=== PATIENT | male | born 1930 | race Caucasian/White ===

== ENCOUNTER → 2017-11-15 | Outpatient (CLI) | payer MEDICARE, OTHER ==
--- NOTE | 2017-11-15 08:45 | RADIOLOGY REPORT (SQ) ---
EXAM DESCRIPTION: MRI LT UPPER JOINT WITHOUT COMPLETED DATE/TIME: 11/15/2017 7:51 am REASON FOR STUDY: PAIN IN LEFT SHOULDER (M25.512) M25.512 PAIN IN LEFT SHOULDER COMPARISON: None. TECHNIQUE: Left shoulder images acquired and stored on PACS. Multiplanar imaging to include fat sens itive sequences such as T1, water sensitive sequences such as FST2/STIR, cartilage sensitive sequence s such as FSPD/gradient-echo sequences. LIMITATIONS: None. FINDINGS: BONE MARROW AND CORTEX: No worrisome bone lesions or marrow replacement. No occult fractur es. JOINT OR BURSAL EFFUSION: Small amount of fluid in the subacromial/subdeltoid bursa GLENO-HUMERAL ARTICULATION: Normal articulation. No subluxation. No cystic change. No osteophytes. M ild age-appropriate chondromalacia ACROMION AND AC JOINT: Type 2 with bulky AC joint hypertrophy, bony spurring and synovial fluid/thic kening. There is narrowing of the subacromial space ROTATOR CUFF AND INTERVAL: Mild tendinopathy anterior attachment distal supraspinatus tendon. infras pinatus, subscapularis are intact. No rotator interval tear. No rotator interval thickening to suggest adhesive capsulitis. LABRUM AND BICEPS LABRAL COMPLEX: There is marked thickening and increased signal of the long head biceps tendon as it enters the joint space from the bicipital groove, best shown on sagittal images 5 -7. Intra-articular long head biceps tendon is high signal from tendinopathy. Diffuse degenerative superior labral tear without paralabral cyst. REMAINDER OF LABRUM AND IGHL : No gross tear or paralabral cyst formation. Labral evaluation is less than optimal without joint distention. No thickening of IGHL to suggest adhesive capsulitis. PERIARTICULAR AND ADJACENT SOFT TISSUES: No masses or abnormal nodes. OTHER: No other significant finding. IMPRESSION: Intra-articular long head biceps tendinopathy with superior labral tear, no paralabral c ysts. AC joint hypertrophy with narrowing of the subacromial space, and fluid in the subacromial/subdeltoid bursa Small partial thickness tear anterior edge distal supraspinatus attachment TECHNICAL DOCUMENTATION: JOB ID: [id number] [employer]- All Rights Reserved Reading location - IP/workstation name: [email or web address] [id number]
== END ==
LOC: RAD 06:41
PROVIDERS: ATTEND Orthopaedic Surgery Sports Medicine
DX: M25.512 Pain in left shoulder (principal); M75.112 Incomplete rotator cuff tear or rupture of left shoulder, not specified as traumatic

== ENCOUNTER → 2018-01-26 | Outpatient (CLI) | payer MEDICARE, OTHER ==
[2018-01-26 10:58] LABS: ABSOLUTE EOSINOPHILS # (AUTO) 0.1 10^3/uL (0.0-0.6); ABSOLUTE LYMPHOCYTES (AUTO) 1.5 10^3/uL (0.5-4.7); ABSOLUTE MONOCYTES (AUTO) 0.6 10^3/uL (0.1-1.4); ABSOLUTE NEUT (AUTO) 6.5 10^3/uL (1.7-8.2); BASOPHILS % (AUTO) 0.5 % (0-2); EOSINOPHILS % (AUTO) 1.1 % (0-6); HEMATOCRIT 33.3 % (37.9-51.0); HEMOGLOBIN 11.8 g/dL (13.5-17.0); LYMPHOCYTES % (AUTO) 16.8 % (13-45); MEAN CORPUSCULAR HEMOGLOBIN 33.1 pg (27.0-33.4); MEAN CORPUSCULAR HGB CONC 35.3 g/dL (32.0-36.0); MEAN CORPUSCULAR VOLUME 94 fl (80-97); PLATELET COUNT 228 10^3/uL (150-450); RED BLOOD COUNT 3.55 10^6/uL (4.35-5.55); RED CELL DISTRIBUTION WIDTH 13.3 % (11.5-14.0); SEGMENTED NEUTROPHILS % (AUTO) 74.6 % (42-78); TOTAL CELLS COUNTED % (AUTO) 100 %; WHITE BLOOD COUNT 8.8 10^3/uL (4.0-10.5)
[2018-01-26 11:27] LABS: ALANINE AMINOTRANSFERASE 16 U/L (21-72); ALBUMIN 4.5 g/dL (3.5-5.0); ALKALINE PHOSPHATASE 55 U/L (38-126); ANION GAP 11 (5-19); ASPARTATE AMINO TRANSFERASE 22 U/L (17-59); BILIRUBIN,DIRECT 0.3 mg/dL (0.0-0.4); BILIRUBIN,TOTAL 0.4 mg/dL (0.2-1.3); BLOOD UREA NITROGEN 34 mg/dL (7-20); CALCIUM 10.4 mg/dL (8.4-10.2); CARBON DIOXIDE 27 mmol/L (22-30); CHLORIDE 107 mmol/L (98-107); GLUCOSE 106 mg/dL (75-110); POTASSIUM 5.3 mmol/L (3.6-5.0); SODIUM 144.8 mmol/L (137-145); TOTAL PROTEIN 7.2 g/dL (6.3-8.2)
== END ==
LOC: OD 10:19
PROVIDERS: ATTEND Orthopaedic Surgery Sports Medicine
DX: Z11.2 Encounter for screening for other bacterial diseases (principal); I10 Essential (primary) hypertension
CPT/HCPCS: 36415; 80053; 85025; 87070

== ENCOUNTER → 2018-03-05 | Outpatient (CLI) | payer MEDICARE, OTHER ==
[2018-03-05 19:08] LABS: HEMATOCRIT 35.6 % (37.9-51.0); HEMOGLOBIN 12.5 g/dL (13.5-17.0); MEAN CORPUSCULAR VOLUME 92 fl (80-97); PLATELET COUNT 243 10^3/uL (150-450); RED BLOOD COUNT 3.89 10^6/uL (4.35-5.55); RED CELL DISTRIBUTION WIDTH 13.1 % (11.5-14.0); WHITE BLOOD COUNT 7.9 10^3/uL (4.0-10.5)
[2018-03-05 19:14] LABS: INTERNATIONAL RATION (INR) 1.14; PROTHROMBIN TIME 15.2 SEC (11.4-15.4)
[2018-03-05 19:15] LABS: PARTIAL THROMBOPLASTIN TIME 40.5 SEC (23.5-35.8)
[2018-03-05 19:26] LABS: ANION GAP 10 (5-19); BLOOD UREA NITROGEN 28 mg/dL (7-20); CARBON DIOXIDE 26 mmol/L (22-30); CHLORIDE 105 mmol/L (98-107); GLUCOSE 116 mg/dL (75-110); POTASSIUM 4.4 mmol/L (3.6-5.0)
== END ==
LOC: LAB 18:44
PROVIDERS: ATTEND Internal Medicine Cardiovascular Disease
DX: Z01.810 Encounter for preprocedural cardiovascular examination (principal); R07.9 Chest pain, unspecified; R07.89 Other chest pain; Z79.01 Long term (current) use of anticoagulants
CPT/HCPCS: 36415; 80048; 85027; 85610; 85730

== ENCOUNTER 2018-07-03 16:39 | Emergency (ER) | payer MEDICARE, OTHER ==
[2018-07-03] MEDS ORDERED: DILTIAZEM HCL/D5W 125 MG/125 ML RTUINJ IV PRN (16:47)
[2018-07-03] MEDS ORDERED: ASPIRIN 81 MG TABLET, CHEWABLE PO ONE (16:47)
--- NOTE | 2018-07-03 17:10 | ER Document Report ---
ED General - General Stated Complaint: CHEST PAIN Time Seen by Provider: 07/03/18 16:47 Primary Care Provider: RAMONE PRUETT MD [Primary Care Provider] - Follow up as needed TRAVEL OUTSIDE OF THE U[place]S. IN LAST 30 DAYS: No - HPI Notes: Patient is a 87-year-old male that presents to the emergency department for chief complaint of rapid heart rate. Patient has history of paroxysmal atrial fibrillation. He is managed by Dr. Pruett. Patient saw Dr. Pruett 2 weeks ago and was in A. fib with rapid rate. He had been given Lopressor 50 mg to take as needed for his tachycardia as well as Cardizem 120 mg daily. He had a follow-up appointment with Dr. Pruett today and had a heart rate of 202 in the office. Patient reports being asymptomatic from his tachycardia. He denies any palpitations, shortness of breath, l ightheadedness and chest pain. Patient denies recent illness. He does have a history of rotator cuff surgery at [place] [facility] in March. Patient had a heart catheterization prior to his surgery which showed mild to moderate CAD but his 2 coronary stents were patent. He is currently taking Eliquis 2.5 mg daily. Past Medical History: Atrial fibrillation, hypertension Past Surgical History: Left rotator cuff surgery, coronary stenting x2 Social History: Denies drugs alcohol and tobacco Family History: Reviewed and noncontributory for presenting illness Allergies: Reviewed, see documented allergy list. REVIEW OF SYSTEMS: CONSTITUTIONAL : No fever No chills No diaphoresis No recent illness EENT: No vision changes No congestion No sore throat CARDIOVASCULAR: No chest pain No palpitations RESPIRATORY: No shortness of breath No cough No difficulty breathing GASTROINTESTINAL: No abdominal pain No nausea No vomiting No diarrhea GENITOURINARY: No dysuria No hematuria No difficulty urinating MUSCULOSKELETAL: No back pain No leg pain No arm pain SKIN: No rashes No lesions LYMPHATIC: No swollen, enlarged glands. NEUROLOGICAL: No lightheadedness No headache No weakness No paresthesias PSYCHIATRIC: No anxiety No depression PHYSICAL EXAMINATION: Vital signs reviewed, nursing noted reviewed. GENERAL: Well-appearing, well-nourished and in no acute distress. HEAD: Atraumatic, normocephalic. EYES: Eyes appear normal, extraocular movements intact, sclera anicteric, conjunctiva are normal. ENT: nares patent, oropharynx clear without exudates. Moist mucous membranes. NECK: Normal range of motion, supple without lymphadenopathy LUNGS: Breath sounds clear to auscultation bilaterally and equal. No wheezes rales or rhonchi. HEART: Irregularly irregular rhythm, tachycardic, without murmurs ABDOMEN: Soft, nontender, normoactive bowel sounds. No rebound, guarding, or rigidity. No masses appreciated. EXTREMITIES: Nontender, good range of motion, no pitting or edema. NEUROLOGICAL: No focal neurological deficits. Moves all extremities spontaneously Motor and sensory grossly intact on exam. PSYCH: Normal mood, normal affect. SKIN: Warm, Dry, normal turgor, no rashes or lesions noted on exposed skin - Related Data Allergies/Adverse Reactions: zolpidem [From Ambien] Allergy (Verified 07/03/18 18:30) Past Medical History - Social History Smoking Status: Never Smoker Family History: Reviewed & Not Pertinent Physical Exam - Vital signs Vitals: Resp Pulse Ox 18 94 07/03/18 16:48 07/03/18 16:48 Course - Re-evaluation Re-evalutation: 07/03/18 17:07 Vitals reviewed. Nursing notes reviewed. Patient received a bolus of Cardizem by EMS prior to arrival which improved his heart rate from 200 to 169. Patient will be started on Cardizem infusion. 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 Sebastian regarding his past cardiac history. Patient has had issues taking medications because of hypotension and noncompliance. Dr. Pruett feels that he is requiring ablation and believes that there is an atrial flutter component to his tachycardia. Dr. Pruett does request that patient be transferred to a facility with EP who can perform an ablation. Patient is currently resting comfortably with no complaints or symptoms. He is on the monitor. Current heart rate is between 130 and 170. 07/03/18 18:57 Patient's lab work shows slight increase in creatinine compared to baseline. The remainder of his blood work is unremarkable. He has a negative troponin. Patient's Cardizem drip has been increased and he has had some improvement of his heart rate. He is bouncing between the 120s and 160s at this point. Patient has remained asymptomatic. I did discuss his care with [facility] where his cardiac catheterization was just performed and was told that they do not do inpatient EP evaluations. I then rediscussed his care with Dr. Pruett who still feels he needs inpatient EP evaluation. Currently I am awaiting a callback from cardiology at [facility] to discuss transferring patient there for further cardiac evaluation. Laboratory 07/03/18 07/03/18 07/03/18 16:54 16:54 16:54 WBC 6.7 RBC 3.59 L Hgb 11.2 L Hct 33.2 L MCV 93 MCH 31.2 MCHC 33.7 RDW 14.0 Plt Count 247 Seg Neutrophils % 70.4 Lymphocytes % 19.9 Monocytes % 8.4 Eosinophils % 0.5 Basophils % 0.8 Absolute Neutrophils 4.7 Absolute Lymphocytes 1.3 Absolute Monocytes 0.6 Absolute Eosinophils 0.0 Absolute Basophils 0.1 Sodium 141.0 Potassium 4.5 Chloride 108 H Carbon Dioxide 22 Anion Gap 11 BUN 24 H Creatinine 1.47 H Est GFR ( Amer) 55 L Est GFR (Non-Af Amer) 45 L Glucose 118 H Calcium 9.8 Total Bilirubin 0.4 Direct Bilirubin 0.3 Neonat Total Bilirubin Not Reportable Neonat Direct Bilirubin Not Reportable Neonat Indirect Bili Not Reportable AST 24 ALT 35 Alkaline Phosphatase 69 Troponin I < 0.012 Total Protein 7.0 Albumin 4.0 Chest X-Ray 07/03/18 16:47 IMPRESSION: Increased interstitial markings bilaterally, basilar predominance. Small right pleural effusion.No dense consolidation. 07/03/18 19:52 Patient's care was discussed with Dr. Roland, cardiology at [facility], who has accepted patient for transfer and admission. - Vital Signs Vital signs: Temp Pulse Resp BP Pulse Ox 27 H 116/72 95 07/03/18 17:46 07/03/18 17:46 07/03/18 17:46 - Laboratory Result Diagrams: 07/03/18 16:54 07/03/18 16:54 Laboratory results interpreted by me: 07/03/18 07/03/18 16:54 16:54 RBC 3.59 L Hgb 11.2 L Hct 33.2 L Chloride 108 H BUN 24 H Creatinine 1.47 H Est GFR ( Amer) 55 L Est GFR (Non-Af Amer) 45 L Glucose 118 H - EKG Interpretation by Me Additional EKG results interpreted by me: 07/03/18 17:10 Interpreted by myself 1645: Atrial fibrillation with RVR, rate 169, normal axis, no STEMI Critical Care Note - Critical Care Note Total time excluding time spent on procedures (mins): 45 Comments: Critical care time 45 exclusive from separate billable procedures for a patient requiring complex medical decision making, and high potential for clinical deterioration. Time spent obtaining history from patient or surrogate, discussions with consultants, development of treatment plan with patient or surrogate, evaluation of patient's response to treatment, examination of patient, ordering and performing treatments and interventions, ordering and review of laboratory studies, re-evaluation of patient's condition, ordering and review of radiographic studies and review of old charts. Laboratory 07/03/18 07/03/18 07/03/18 16:54 16:54 16:54 WBC 6.7 RBC 3.59 L Hgb 11.2 L Hct 33.2 L MCV 93 MCH 31.2 MCHC 33.7 RDW 14.0 Plt Count 247 Seg Neutrophils % 70.4 Lymphocytes % 19.9 Monocytes % 8.4 Eosinophils % 0.5 Basophils % 0.8 Absolute Neutrophils 4.7 Absolute Lymphocytes 1.3 Absolute Monocytes 0.6 Absolute Eosinophils 0.0 Absolute Basophils 0.1 Sodium 141.0 Potassium 4.5 Chloride 108 H Carbon Dioxide 22 Anion Gap 11 BUN 24 H Creatinine 1.47 H Est GFR ( Amer) 55 L Est GFR (Non-Af Amer) 45 L Glucose 118 H Calcium 9.8 Total Bilirubin 0.4 Direct Bilirubin 0.3 Neonat Total Bilirubin Not Reportable Neonat Direct Bilirubin Not Reportable Neonat Indirect Bili Not Reportable AST 24 ALT 35 Alkaline Phosphatase 69 Troponin I < 0.012 Total Protein 7.0 Albumin 4.0 Chest X-Ray 07/03/18 16:47 IMPRESSION: Increased interstitial markings bilaterally, basilar predominance. Small right pleural effusion.No dense consolidation. Discharge - Discharge Clinical Impression: Atrial fibrillation with RVR Condition: Stable Disposition: [facility] Referrals: RAMONE PRUETT MD [Primary Care Provider] - Follow up as needed
[2018-07-03 17:22] LABS: ABSOLUTE BASOPHILS # (AUTO) 0.1 10^3/uL (0.0-0.2); ABSOLUTE LYMPHOCYTES (AUTO) 1.3 10^3/uL (0.5-4.7); ABSOLUTE MONOCYTES (AUTO) 0.6 10^3/uL (0.1-1.4); ABSOLUTE NEUT (AUTO) 4.7 10^3/uL (1.7-8.2); BASOPHILS % (AUTO) 0.8 % (0-2); EOSINOPHILS % (AUTO) 0.5 % (0-6); HEMATOCRIT 33.2 % (37.9-51.0); HEMOGLOBIN 11.2 g/dL (13.5-17.0); LYMPHOCYTES % (AUTO) 19.9 % (13-45); MEAN CORPUSCULAR HEMOGLOBIN 31.2 pg (27.0-33.4); MEAN CORPUSCULAR HGB CONC 33.7 g/dL (32.0-36.0); MEAN CORPUSCULAR VOLUME 93 fl (80-97); MONOCYTES % (AUTO) 8.4 % (3-13); PLATELET COUNT 247 10^3/uL (150-450); RED BLOOD COUNT 3.59 10^6/uL (4.35-5.55); SEGMENTED NEUTROPHILS % (AUTO) 70.4 % (42-78); TOTAL CELLS COUNTED % (AUTO) 100 %; WHITE BLOOD COUNT 6.7 10^3/uL (4.0-10.5)
--- NOTE | 2018-07-03 17:31 | RADIOLOGY REPORT (SQ) ---
EXAM DESCRIPTION: CHEST SINGLE VIEW COMPLETED DATE/TIME: 07/03/2018 5:11 pm REASON FOR STUDY: chest pain COMPARISON: None. EXAM PARAMETERS: NUMBER OF VIEWS: One view. TECHNIQUE: Single frontal radiographic view of the chest acquired. RADIATION DOSE: NA LIMITATIONS: None. FINDINGS: LUNGS AND PLEURA: Increased interstitial markings bilaterally, basilar predominance. Smal l right pleural effusion.No dense consolidation, masses or pneumothorax. MEDIASTINUM AND HILAR STRUC TURES: Age-appropriate contour. HEART AND VASCULAR STRUCTURES: Heart normal in size. BONES: No acute findings. HARDWARE: None in the chest. OTHER: No other significant finding. IMPRESSION: Increased interstitial markings bilaterally, basilar predominance. Small right pleural effusion.No dense consolidation. TECHNICAL DOCUMENTATION: JOB ID: [id number] [employer]- All Rights Reserved Reading location - IP/workstation name: [email or web address]
[2018-07-03 17:40] LABS: ALANINE AMINOTRANSFERASE 35 U/L (21-72); ALKALINE PHOSPHATASE 69 U/L (38-126); ANION GAP 11 (5-19); ASPARTATE AMINO TRANSFERASE 24 U/L (17-59); BILIRUBIN,DIRECT 0.3 mg/dL (0.0-0.4); BILIRUBIN,TOTAL 0.4 mg/dL (0.2-1.3); BLOOD UREA NITROGEN 24 mg/dL (7-20); CALCIUM 9.8 mg/dL (8.4-10.2); CARBON DIOXIDE 22 mmol/L (22-30); CHLORIDE 108 mmol/L (98-107); GLUCOSE 118 mg/dL (75-110); POTASSIUM 4.5 mmol/L (3.6-5.0)
[2018-07-03] MEDS ORDERED: FUROSEMIDE INJ/PF 40 MG/4 ML SDV IV ONE (18:48)
[2018-07-03] MEDS ORDERED: DEXTROSE 5%-WATER 500 ML with AMIODARONE HCL 900 MG IV PRN ×2 (22:10)
[2018-07-03] MEDS ORDERED: AMIODARONE HCL 150 MG in DEXTROSE 5%-WATER 100 ML IV ONE (22:10)
[2018-07-03] MEDS ORDERED: AMIODARONE HCL INJ 150 MG/3 ML VIAL IV ONE (22:23)
[2018-07-04 01:00] VITALS: BP 143/93
--- NOTE | 2018-07-04 10:36 | EKG REPORT ---
SEVERITY:- ABNORMAL ECG - ATRIAL FIBRILLATION WITH RAPID V-RATE CONSIDER ANTEROSEPTAL INFARCT REPOLARIZATION ABNORMALITY, PROB RATE RELATED : Confirmed by: Jen Del Toro 04-Jul-2018 10:36:02
== END 2018-07-04 00:55 | disposition short-term general hospital (02) ==
LOC: ER 16:39
DX: I48.2 Chronic atrial fibrillation (principal)
CPT/HCPCS: 93005; 99291; 96375; 96365; 96366; 96367; 36415; 85025; 80053; 84484; 71045; 93010; A9270; J1940; J7060 ×2; J0282; J3490

== ENCOUNTER → 2018-10-09 | Outpatient (CLI) | payer MEDICARE, OTHER ==
--- NOTE | 2018-10-09 16:43 | RADIOLOGY REPORT (SQ) ---
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 TECHNIQUE: Grayscale ultrasound, Doppler velocity and spectra, and color Doppler images acquired of the extra-cranial carotid and vertebral arteries. Images stored on PACS. LIMITATIONS: None. FINDINGS: RIGHT CAROTID CCA Velocities: Within normal limits. ICA Velocities Peak systolic 131 cm/s. End diastolic 22 cm/s. Proximal ICA/CCA peak systolic ratio 1.6 june. There is considerable shadowing plaque in the carotid bulb and proximal ICA. There is tortuosity of the ICA. LEFT CAROTID CCA Velocities: Within normal limits. ICA Velocities Peak systolic 106 cm/s. End diastolic 19 cm/s. Proximal ICA/CCA peak systolic ratio 0.97. There is plaque in the proximal ICA. VERTEBRAL ARTERIES: Antegrade flow. Normal waveforms. SUBCLAVIAN ARTERIES: No finding. OTHER: No other significant finding. IMPRESSION: There are atherosclerotic changes with no hemodynamically significant lesion. COMMENT: Quality ID #[id number]: Velocity criteria are extrapolated from the diameter data as defined by t he Society of Radiologists in Ultrasound Consensus Conference. Radiology 2003: 229; 340-346. TECHNICAL DOCUMENTATION: JOB ID: [id number] [employer]- All Rights Reserved Reading location - IP/workstation name: [email or web address]
== END ==
LOC: SP 10:41
PROVIDERS: ATTEND Ophthalmology
DX: H47.011 Ischemic optic neuropathy, right eye (principal)
CPT/HCPCS: 93880

== ENCOUNTER → 2018-10-29 | Outpatient (CLI) | payer MEDICARE, OTHER ==
--- NOTE | 2018-10-29 13:32 | RADIOLOGY REPORT (SQ) ---
EXAM DESCRIPTION: CHEST 2 VIEWS COMPLETED DATE/TIME: 10/29/2018 1:04 pm REASON FOR STUDY: I48.0 PAROXYSMAL ATRIAL FIBRILLATION COMPARISON: 07/03/2018 EXAM PARAMETERS: NUMBER OF VIEWS: two views TECHNIQUE: Digital Frontal and Lateral radiographic views of the chest acquired. RADIATION DOSE: NA LIMITATIONS: none FINDINGS: LUNGS AND PLEURA: Chronic interstitial changes in the right base. No acute infiltrate, ef fusion, or mass. MEDIASTINUM AND HILAR STRUCTURES: No masses or contour abnormalities. HEART AND VASCULAR STRUCTURES: Heart normal size. No evidence for failure. BONES: No acute findings. HARDWARE: None in the chest. OTHER: No other significant finding. IMPRESSION: Chronic lung changes with no acute cardiopulmonary findings. TECHNICAL DOCUMENTATION: JOB ID: [id number] [employer]- All Rights Reserved Reading location - IP/workstation name: [email or web address]
--- NOTE | 2018-10-30 10:28 | Pulmonary Function Test ---
Pulmonary Function Test Date of Procedure:: 10/30/18 INDICATION:: Amiodarone Referring Provider: Type Soldering Machine Tender: Hafsa Hudson THERAPIST PHYS - Report Spirometry: Spirometry: pre-FVC: 4.01 L 107% pre-FEV:1 2.58 L 90% pre-FEV1/FVC %: 75 predicted: 64 [id number]%: 1.19 L 44% Diffusion Capactity: DLCO: 13.9 90% DLCO/VA: 2.36 74% Impression: Obstructive defect is inferred by the decrease flow at FEF 25-75%. Normal diffusion capacity.
== END ==
LOC: RT 11:58
PROVIDERS: ATTEND Internal Medicine Cardiovascular Disease
DX: I48.0 Paroxysmal atrial fibrillation (principal); Z79.899 Other long term (current) drug therapy
CPT/HCPCS: 71046; 94010; 94729

== ENCOUNTER 2018-12-27 17:53 | Emergency (ER) | payer MEDICARE, OTHER ==
[2018-12-27] MEDS ORDERED: METHYLPREDNISOLONE INJ 125 MG/2 ML SDV IV ONE (19:19)
[2018-12-27] MEDS ORDERED: FAMOTIDINE INJ/PF 20 MG/2 ML SDV IV ONE (19:20)
[2018-12-27] MEDS ORDERED: DIPHENHYDRAMINE HCL 50 MG/ML VIAL IV ONE (19:20)
--- NOTE | 2018-12-27 19:22 | ER Document Report ---
ED General - General Chief Complaint: Allergic Reaction Stated Complaint: POSSIBLE ALLERGIC REACTION Time Seen by Provider: 12/27/18 19:14 Primary Care Provider: BEATRIZ ALEXANDER MD [Primary Care Provider] - Follow up as needed TRAVEL OUTSIDE OF THE [place] IN LAST 30 DAYS: No - HPI Notes: Patient is an 88-year-old male with history of atrial fibrillation who presents from MRI as an outpatient for possible allergic reaction to the dye. Patient states that when he started getting the contrast he started noticing some itching. By the time the MRI was completed he had some welts on his chest and on his had that were pruritic. Patient was brought here for evaluation. He has not noticed any swelling of his tongue/lip/throat. He is able to swallow without difficulty. Patient states he is feeling good overall and has not noticed any worsening symptoms. Patient states that overall the hives have somewhat decreased. No other new foods, detergents, soaps, chemicals, clothing, travel. Denies any history of diabetes. Denies any headache, fever, neck pain, changes in speech/mentation/hearing, URI, sore throat, chest pain, palpitations, syncope, cough, shortness of breath, wheeze, dyspnea, abdominal pain, nausea/vomiting/diarrhea, urinary retention, dysuria, hematuria, new joint pains. - Related Data Allergies/Adverse Reactions: zolpidem [From Ambien] Allergy (Verified 07/03/18 18:30) Past Medical History - Social History Smoking Status: Never Smoker Family History: Reviewed & Not Pertinent Patient has suicidal ideation: No Patient has homicidal ideation: No Renal/ Medical History: Denies: Hx Peritoneal Dialysis Review of Systems - Review of Systems -: Yes All other systems reviewed and negative Physical Exam - Vital signs Vitals: Temp Pulse Resp BP Pulse Ox 97.6 F 73 18 204/72 H 98 12/27/18 18:00 12/27/18 18:00 12/27/18 18:00 12/27/18 18:00 12/27/18 18:00 - Notes Notes: PHYSICAL EXAMINATION: GENERAL: Well-appearing, well-nourished and in no acute distress. A&Ox4. Answers questions appropriately. Moves comfortably w/o notable distress HEAD: Atraumatic, normocephalic. EYES: Pupils equal round and reactive to light, extraocular movements intact, sclera anicteric, conjunctiva are normal. ENT: Nares patent and with clear discharge. oropharynx no erythema without exudates. No tonsilar hypertrophy without erythema no exudate. No palatine shift. Uvula midline. No tongue protrusion. No drooling, hoarseness, or airway compromise. Moist mucous membranes. No sinus tenderness. There is no evidence of angioedema. No swelling of the lip/tongue/throat. Patient able to swallow without any difficulties. NECK: Normal range of motion, supple without lymphadenopathy. No rigidity/meningismus. LUNGS: Breath sounds clear to auscultation bilaterally and equal. No wheezes rales or rhonchi. No retractions HEART: Regular rate and rhythm without murmurs, rubs, gallops. ABDOMEN: Soft, nontender, nondistended abdomen. No guarding, no rebound. Normal bowel sounds present. No CVA tenderness bilaterally. NEUROLOGICAL: Normal speech, normal gait. Cranial nerves grossly intact. PSYCH: Normal mood, normal affect. SKIN: Warm, Dry, normal turgor, no rashes or lesions noted. Course - Re-evaluation Re-evalutation: 12/27/18 20:48 Patient is an afebrile, well-hydrated, 88-year-old male who presents for a mild allergic reaction most likely to the contrast dye that was utilized during the MRI. Vitals are acceptable without significant tachycardia, tachypnea, hypoxia, hypotension. PE is otherwise unremarkable. Patient is nontoxic-appearing and is tolerating p.o. without difficulty. Patient has been monitored without any worsening symptoms. He did receive Solu-Medrol, Benadryl, and Pepcid and has had significant improvement. Patient states that he is feeling much better and would like to go home. No further work-up warranted. Low suspicion for any meningitis, sepsis, peritonsillar/pharyngeal abscess, respiratory compromise, Marco Antonio's, angioedema, shock, or other emergent systemic condition at this time. Patient is aware this condition can change from initial presentation and he needs to monitor symptoms closely. Conservative measures otherwise for symptoms. Recheck with your PCM in 2-3 days. Return to the ED with any worsening/concerning symptoms otherwise as reviewed in discharge. Patient is in agreement. - Vital Signs Vital signs: Temp Pulse Resp BP Pulse Ox 97.6 F 73 18 162/65 H 94 12/27/18 18:00 12/27/18 18:00 12/27/18 18:00 12/27/18 20:01 12/27/18 20:01 Discharge - Discharge Clinical Impression: Allergic reaction Qualifiers: Encounter type: initial encounter Qualified Code(s): T78.40XA - Allergy, unspecified, initial encounter Condition: Stable Disposition: HOME, SELF-CARE Additional Instructions: Keep the skin clean Wash with soap and water Benadryl/pepcid as reviewed Monitor for any worsening symptoms Recheck with your PCM in 2-3 days Return to the ED with any worsening symptoms and/or development of fever, swelling of lips/tongue/throat, drooling, hoarseness, headache, chest pain, palpitations, syncope, shortness of breath, trouble breathing, abdominal pain, n/v/d, abscess, purulent discharge, red streaks, worsening swelling, or other worsening symptoms that are concerning to you. Prescriptions: Prednisone [Deltasone 20 mg Tablet] 3 tab PO DAILY 3 Days tablet Epinephrine [Epipen Jr 0.15 mg/0.3 mL AutoInject] 1 ea IM ASDIR PRN #1 autoinjector PRN Reason: Forms: Elevated Blood Pressure Referrals: BEATRIZ ALEXANDER MD [Primary Care Provider] - Follow up as needed
[2018-12-27 22:24] VITALS: BP 161/69
== END 2018-12-27 22:24 | disposition home or self-care (01) ==
LOC: ER 17:53
DX: T78.40XA Allergy, unspecified, initial encounter (principal); X58.XXXA Exposure to other specified factors, initial encounter; I48.91 Unspecified atrial fibrillation
CPT/HCPCS: J1200; J2930; S0028

== ENCOUNTER → 2018-12-27 | Outpatient (CLI) | payer MEDICARE, OTHER ==
--- NOTE | 2018-12-28 13:09 | RADIOLOGY REPORT (SQ) ---
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 TECHNIQUE: Multiplanar imaging includes noncontrasted T1, T2, FLAIR, diffusion with ADC map and post gadolinium contrast T1 sequences. Thin section imaging through the orbits including pre and postcontrast T1 axial and coronal images, a xial and coronal fat-sat T2 weighted images were obtained. Images stored on PACS. CONTRAST TYPE AND DOSE: 7.5 mL Dotarem. RENAL FUNCTION: Not indicated. ACR Type II contrast agent associated with few, if any, unconfounded cases of NSF LIMITATIONS: None. FINDINGS: ANATOMY: No developmental anomalies. Normal vascular flow voids. Pituitary fossa normal. CSF SPACES: Normal in size and contour. No hemorrhage. CEREBRUM: Sulci and gyri normal in size and contour. Age-appropriate mild increased bifrontal and bi parietal white matter signal on FLAIR imaging from chronic small vessel ischemic change. No evidence of hemorrhage, mass, or extraaxial fluid collection. No abnormal enhancement post contrast. POSTERIOR FOSSA: No signal alteration. No hemorrhage. No edema, masses, or mass effect. Internal breana tory canals, cerebellopontine angles, mastoids normal. No enhancing lesions. No abnormal enhancement post contrast. DIFFUSION IMAGING: Negative for acute or subacute infarction. ORBITS: Post cataract surgery bilaterally. Globes are otherwise unremarkable. Normal optic nerves. No masses or inflammation along the intraconal or extraconal orbital soft tissues. Extraocular musc les, lacrimal apparatus intact. PARANASAL SINUSES: No fluid levels. Mucosa normal. OTHER: No other significant finding. IMPRESSION: ESSENTIALLY NORMAL FOR AGE, MRI OF THE BRAIN WITHOUT AND WITH INTRAVENOUS GADOLINIUM CON TRAST. EVIDENCE OF ACUTE STROKE: NO. TECHNICAL DOCUMENTATION: JOB ID: [id number] [email or web address] All Rights Reserved Reading location - IP/workstation name: [email or web address]
== END ==
LOC: RAD 14:22
PROVIDERS: ATTEND Ophthalmology
DX: H47.011 Ischemic optic neuropathy, right eye (principal); H47.10 Unspecified papilledema
CPT/HCPCS: 82565; 70553; A9576

== ENCOUNTER 2019-03-11 09:17 | Inpatient (IN) | payer MEDICARE, OTHER ==
--- NOTE | 2019-03-11 09:59 | ER Document Report ---
ED General - General Chief Complaint: Breathing Difficulty Stated Complaint: DIFFICULTY BREATHING Primary Care Provider: RAMONE PRUETT MD [Primary Care Provider] - Follow up as needed Notes: 88-year-old male with history of intermittent A. fib presenting with increased shortness of breath this morning with chest pain. Not able to describe it well but for the past week has been having intermittent positional dizziness and near syncope this morning had acute shortness of breath and chest pain. Found to be in SVT apparently per EMS which they captured on a strip. He takes Eliquis, he was on amiodarone, but has been off of that because of complications. E TRAVEL OUTSIDE OF THE [place] IN LAST 30 DAYS: No - Related Data Allergies/Adverse Reactions: Gadolinium-Containing Contrast Medi Allergy (Intermediate, Verified 12/31/18 08:07) Hives zolpidem [From Ambien] Allergy (Verified 07/03/18 18:30) Past Medical History - Social History Smoking Status: Former Smoker Family History: Reviewed & Not Pertinent Renal/ Medical History: Denies: Hx Peritoneal Dialysis Review of Systems - Review of Systems Notes: REVIEW OF SYSTEMS GEN: Denies fever, chills, weight loss ENT: Denies sore throat, nasal discharge, ear pain EYES: Denies blurry vision, eye pain, discharge CV: Chest pain RESP: As of breath GI: Denies abdominal pain, nausea, vomiting, diarrhea MSK: Denies joint pain/swelling, edema, SKIN: Denies rash, skin lesions LYMPH: Denies swollen glands/lymph nodes NEURO: Dizziness denies headache, focal weakness or numbness, dizziness PSYCH: Denies depression, suicidal or homicidal ideation PHYSICAL EXAMINATION General: No acute distress, well-nourished Head: Atraumatic, normocephalic ENT: Mouth normal, oropharynx moist, no exudates or tonsillar enlargement Eyes: Conjunctiva normal, pupils equal, lids normal Neck: No JVD, supple, no guarding CVS: Normal rate, regular rhythm, no murmurs Resp: No resp distress, equal and normal breath sounds bilaterally GI: Nondistended, soft, no tenderness to palpation, no rebound or guarding Ext: No deformities, no edema, normal range of motion in upper and lower ext Back: No CVA or midline TTP Skin: No rash, warm Lymphatic: No lymphadeopathy noted Neuro: Awake, alert. Face symmetric. GCS 15. Course - Re-evaluation Re-evalutation: 03/11/19 11:13 Patient presents with intermittent orthostasis chest pain and palpitations In the ED he sinus rhythm but has been in SVT for the EMS.. Labs were done EKG does not show ischemia Patient had 2 different episodes where he accelerated into a rapid narrow complex tachycardia, hemodynamically stable, in the ED. We will proceed with Cardizem bolus and drip for SVT versus flutter We will withhold anticoagulation. Troponin is elevated at nearly 2, could be an STEMI or demand. Given aspirin. Already anticoagulated, does not miss doses so will not give Lovenox. Discussed with Dr. pal for admission Dr. Payne - Laboratory Result Diagrams: 03/11/19 09:00 03/11/19 09:00 Laboratory results interpreted by me: 03/11/19 03/11/19 03/11/19 09:00 09:00 09:00 WBC 11.1 H RBC 3.80 L Hgb 12.5 L Hct 36.2 L RDW 14.3 H Seg Neuts % (Manual) 83 H Lymphocytes % (Manual) 9 L Abs Neuts (Manual) 9.2 H Sodium 136.4 L Potassium 5.1 H BUN 35 H Creatinine 1.92 H Est GFR ( Amer) 40 L Est GFR (MDRD) Non-Af 33 L Glucose 141 H NT-Pro-B Natriuret Pep 7170 H - Diagnostic Test Radiology reviewed: Image reviewed, Reports reviewed - EKG Interpretation by Me EKG shows normal: Sinus rhythm Rate: Normal Rhythm: NSR - EKG number 2.: SVT 150, no significant ST or T wave changes, intervals otherwise normal Critical Care Note - Critical Care Note Total time excluding time spent on procedures (mins): 35 Comments: The above patient is critically ill. Not including procedures, but including direct re-evaluations, speaking with patient and/or consultants, interpreting results, and documenting, I spent the total amount of minute listed listed above on critical care time Discharge - Discharge Clinical Impression: Rapid atrial fibrillation, NSTEMI (non-ST elevated myocardial infarction) Condition: Good Disposition: ADMITTED INPATIENT Admitting Provider: Kerry (Hospitalist) Unit Admitted: Telemetry Referrals: RAMONE PRUETT MD [Primary Care Provider] - Follow up as needed
[2019-03-11 10:08] LABS: HEMATOCRIT 36.2 % (37.9-51.0); HEMOGLOBIN 12.5 g/dL (13.5-17.0); MEAN CORPUSCULAR HEMOGLOBIN 32.9 pg (27.0-33.4); MEAN CORPUSCULAR HGB CONC 34.5 g/dL (32.0-36.0); MEAN CORPUSCULAR VOLUME 95 fl (80-97); PLATELET COUNT 349 10^3/uL (150-450); RED CELL DISTRIBUTION WIDTH 14.3 % (11.5-14.0); WHITE BLOOD COUNT 11.1 10^3/uL (4.0-10.5)
[2019-03-11] MEDS ORDERED: DILTIAZEM HCL/D5W 125 MG/125 ML RTUINJ IV PRN (10:21)
[2019-03-11] MEDS ORDERED: DILTIAZEM HCL INJ 25 MG/5 ML VIAL IV ONE (10:21)
[2019-03-11 10:32] LABS: ANION GAP 12 (5-19); BLOOD UREA NITROGEN 35 mg/dL (7-20); CALCIUM 9.8 mg/dL (8.4-10.2); CARBON DIOXIDE 22 mmol/L (22-30); CHLORIDE 102 mmol/L (98-107); GLUCOSE 141 mg/dL (75-110); POTASSIUM 5.1 mmol/L (3.6-5.0)
[2019-03-11 10:45] LABS: TROPONIN I 1.95 ng/mL
[2019-03-11 10:49] LABS: ABSOLUTE LYMPHOCYTES# (MANUAL) 1.1 10^3/uL (0.5-4.7); ABSOLUTE MONOCYTES # (MANUAL) 0.8 10^3/uL (0.1-1.4); BASOPHILS % (MANUAL) 0 % (0-2); EOSINOPHILS % (MANUAL) 0 % (0-6); LYMPHOCYTES % (MANUAL) 9 % (13-45); MONOCYTES % (MANUAL) 7 % (3-13); SEGMENTED NEUTROPHILS % (MAN) 83 % (42-78); TOTAL CELLS COUNTED 100
[2019-03-11 10:59] LABS: ANISOCYTOSIS SLIGHT; OVALOCYTES SLIGHT; SCHISTOCYTES SLIGHT
[2019-03-11 11:01] LABS: PLATELET COMMENT ADEQUATE
[2019-03-11] MEDS ORDERED: ASPIRIN 81 MG TABLET, CHEWABLE PO ONE (11:04)
--- NOTE | 2019-03-11 11:14 | RADIOLOGY REPORT (SQ) ---
EXAM DESCRIPTION: CHEST SINGLE VIEW COMPLETED DATE/TIME: 03/11/2019 10:50 am REASON FOR STUDY: SOB COMPARISON: 10/29/2018 EXAM PARAMETERS: NUMBER OF VIEWS: One view. TECHNIQUE: Single frontal radiographic view of the chest acquired. RADIATION DOSE: NA LIMITATIONS: None. FINDINGS: LUNGS AND PLEURA: Bilateral interstitial airspace disease most marked in the lung bases an d lung periphery. There is been a slight increase since 10/29/2018. Suspect chronic interstitial ambrose g disease. No effusions. No pneumothorax. MEDIASTINUM AND HILAR STRUCTURES: No masses. Contour normal. HEART AND VASCULAR STRUCTURES: Heart normal in size. Normal vasculature. BONES: No acute findings. HARDWARE: None in the chest. OTHER: No other significant finding. IMPRESSION: Chronic appearing bilateral interstitial lung disease. Findings have slightly progresse d when compared to prior exam. TECHNICAL DOCUMENTATION: JOB ID: [id number] [employer] All Rights Reserved Reading location - IP/workstation name: [email or web address]
[2019-03-11] MEDS ORDERED: ONDANSETRON 4 MG TAB.RAPDIS PO PRN (12:22)
[2019-03-11] MEDS ORDERED: LEVALBUTEROL HCL NEB 1.25 MG/3 ML AMPUL NEB PRN (12:22)
[2019-03-11] MEDS ORDERED: OXYCODONE-ACETAMINOPHEN 5-325 MG TABLET PO PRN (12:22)
[2019-03-11] MEDS ORDERED: ACETAMINOPHEN 325 MG TABLET PO PRN (12:22)
[2019-03-11] MEDS ORDERED: ONDANSETRON HCL INJ/PF 4 MG/2 ML SDV IV PRN (12:22)
[2019-03-11] MEDS: FUROSEMIDE 20 MG TABLET PO SCH ×2 (13:32→17:03)
[2019-03-11] MEDS: METOPROLOL SUCCINATE 50 MG TAB.SR.24H PO SCH ×2 (13:33→22:55)
[2019-03-11] MEDS: ASPIRIN 81 MG TABLET, ENT COATED PO SCH (13:33)
[2019-03-11 13:55] LABS: INTERNATIONAL RATION (INR) 1.33; PROTHROMBIN TIME 16.6 SEC (11.4-15.4)
[2019-03-11 14:54] LABS: CREATINE KINASE MB 6.7 ng/mL (<4.55); TROPONIN I 2.76 ng/mL
[2019-03-11 17:23] LABS: APPEARANCE,URINE CLEAR; BILIRUBIN,URINE NEGATIVE (NEGATIVE); COLOR,URINE YELLOW; GLUCOSE, URINE NEGATIVE (NEGATIVE); KETONES,URINE NEGATIVE (NEGATIVE); LEUKOCYTE ESTERASE,URINE NEGATIVE (NEGATIVE); NITRITE,URINE NEGATIVE (NEGATIVE); PROTEIN,URINE NEGATIVE (NEGATIVE); URINE SPECIFIC GRAVITY 1.008; UROBILINOGEN,URINE NEGATIVE mg/dL (<2.0)
--- NOTE | 2019-03-11 18:48 | PDOC H&P ---
History of Present Illness Admission Date/PCP: 03/11/19 11:18 RAMONE PRUETT MD History of Present Illness: MISTY JAIMSE is a 88 year old male mated to the hospital for paroxysmal atrial fib. She has a history of this dating back at least 16 years according to the patient. Next year he was put on amiodarone over in [place] but he had a reaction to it and it has caused visual problems. Patient cannot take Multitaq or Dotarem. She states for the last couple of months he has been weak and short of breath but in the last week it has been worse. Patient states that for the last week and several days he has had near syncopal episodes where he gets lightheaded, has not had an actual syncope episode. Patient's paper products printer is Dr. Ramone Pruett, spoken with on the phone he is made re commendations that we put him back on his Lopressor 50 mg twice daily. He stated that he would see the patient and make further recommendations In the emergency room patient was given Cardizem and converted down to a rate of 80. Had been as high as 144 in the emergency room just briefly. Patient's usual troponin was 1.95-second troponin was elevated at 2.76. I have a call into the paper products printer about his rising troponin, however patient is asymptomatic having no chest pain. Could simply be due to his A. fib and RVR. She is currently on Eliquis 2.5 mg twice daily as well as 81 of aspirin and a statin, now have resumed his beta-carlos. Past Medical History Cardiac Medical History: Reports: Atrial Fibrillation, Hyperlipidema, Hypertension Past Surgical History Past Surgical History: Reports: Orthopedic Surgery - LEFT SHOULDER AND ROTATOR CUFF. Social History Smoking Status: Former Smoker Electronic Cigarette use?: No - Advance Directive Resuscitation Status: Full Code Family History Family History: Reviewed & Not Pertinent Parental Family History Reviewed: No Children Family History Reviewed: No Sibling(s) Family History Reviewed.: No Medication/Allergy Home Medications: Apixaban [Eliquis 2.5 mg Tablet] 2.5 mg PO Q12 03/11/19 Aspirin [Ecotrin 81 mg EC Tablet] 81 mg PO DAILY 03/11/19 Lisinopril 20 mg PO QPM 03/11/19 Lisinopril 40 mg PO QAM 03/11/19 Rosuvastatin Calcium [Crestor 20 mg Tablet] 20 mg PO QHS 03/11/19 Allergies/Adverse Reactions: amiodarone Allergy (Severe, Verified 03/11/19 12:18) Blurred vision dronedarone [From Multaq] Allergy (Intermediate, Verified 03/11/19 12:18) Hives Gadolinium-Containing Contrast Medi Allergy (Intermediate, Verified 12/31/18 08:07) Hives gadoterate meglumine [From Dotarem] Allergy (Intermediate, Verified 03/11/19 12:18) Hives Review of Systems Constitutional: PRESENT: weakness, other - Lightheaded. ABSENT: chills, fever(s), headache(s), weight gain, weight loss Cardiovascular: PRESENT: chest pain Respiratory: PRESENT: dyspnea Neurological: ABSENT: abnormal gait, abnormal speech, confusion, dizziness, focal weakness, syncope Psychiatric: ABSENT: anxiety, depression, homidical ideation, suicidal ideation Physical Exam Vital Signs: Temp Pulse Resp BP Pulse Ox 98.2 F 23 H 110/56 L 94 03/11/19 16:29 03/11/19 16:00 03/11/19 15:01 03/11/19 16:00 Intake & Output 03/10/19 03/11/19 03/12/19 06:59 06:59 06:59 Weight 80.1 kg General appearance: PRESENT: no acute distress, other - Patient is in no distress has no chest pain Respiratory exam: PRESENT: clear to auscultation edis. ABSENT: rales, rhonchi, wheezes Cardiovascular exam: PRESENT: RRR. ABSENT: diastolic murmur, rubs, systolic murmur Neurological exam: PRESENT: alert, awake, oriented to person, oriented to place, oriented to time, oriented to situation, CN II-XII grossly intact. ABSENT: motor sensory deficit Psychiatric exam: PRESENT: appropriate affect, normal mood. ABSENT: homicidal ideation, suicidal ideation Results Laboratory Results: 03/11/19 09:00 03/11/19 09:00 03/11/19 03/11/19 03/11/19 09:00 09:00 09:00 WBC 11.1 H RBC 3.80 L Hgb 12.5 L Hct 36.2 L MCV 95 MCH 32.9 MCHC 34.5 RDW 14.3 H Plt Count 349 Seg Neutrophils % Not Reportable Sodium 136.4 L Potassium 5.1 H Chloride 102 Carbon Dioxide 22 Anion Gap 12 BUN 35 H Creatinine 1.92 H Est GFR ( Amer) 40 L Glucose 141 H Calcium 9.8 TSH 4.36 Urine Color Urine Appearance Urine pH Ur Specific [place] Urine Protein Urine Glucose (UA) Urine Ketones Urine Blood Urine Nitrite Ur Leukocyte Esterase Urine WBC (Auto) Urine RBC (Auto) 03/11/19 17:08 WBC RBC Hgb Hct MCV MCH MCHC RDW Plt Count Seg Neutrophils % Sodium Potassium Chloride Carbon Dioxide Anion Gap BUN Creatinine Est GFR ( Amer) Glucose Calcium TSH Urine Color YELLOW Urine Appearance CLEAR Urine pH 5.0 Ur Specific [place] 1.008 Urine Protein NEGATIVE Urine Glucose (UA) NEGATIVE Urine Ketones NEGATIVE Urine Blood SMALL H Urine Nitrite NEGATIVE Ur Leukocyte Esterase NEGATIVE Urine WBC (Auto) 0 Urine RBC (Auto) 0 03/11/19 03/11/19 09:00 13:57 CK-MB (CK-2) 6.70 H Troponin I 1.950 2.760 NT-Pro-B Natriuret Pep 7170 H Impressions: Chest X-Ray 03/11/19 10:11 IMPRESSION: Chronic appearing bilateral interstitial lung disease. Findings have slightly progressed when compared to prior exam. Assessment and Plan - Diagnosis (1) Elevated troponin Is this a current diagnosis for this admission?: Yes (2) Rapid atrial fibrillation Is this a current diagnosis for this admission?: Yes - Plan Summary Summary: Patient at the time of admission had only one elevated troponin now has a second troponin that is increased, though patient is pain-free and in normal sinus rhythm. Patient has been on Eliquis and will continue to stay on Eliquis as well as aspirin. Patient was also placed on Toprol 50 mg every 12 hours. Patient will be seen by cardiology for further work-up. I have a call into cardiology concerning his elevated second troponin. - Time Time Spent with patient: 35 or more minutes
--- NOTE | 2019-03-11 20:48 | EKG REPORT ---
SEVERITY:- ABNORMAL ECG - SUPRAVENTRICULAR TACHYCARDIA LEFT AXIS DEVIATION CONSIDER ANTEROSEPTAL INFARCT REPOLARIZATION ABNORMALITY, PROB RATE RELATED : Confirmed by: Jen Del Toro 11-Mar-2019 20:48:21
--- NOTE | 2019-03-11 20:49 | EKG REPORT ---
SEVERITY:- ABNORMAL ECG - SINUS RHYTHM LEFT AXIS DEVIATION CONSIDER ANTEROSEPTAL INFARCT NONSPECIFIC REPOL ABNORMALITY, DIFFUSE LEADS : Confirmed by: Jen Del Toro 11-Mar-2019 20:48:37
[2019-03-11 21:48] LABS: CREATINE KINASE MB 6.96 ng/mL (<4.55)
[2019-03-11 22:00] LABS: TROPONIN I 2.34 ng/mL
[2019-03-11] MEDS ORDERED: (PENDING PHARMACY ID) (Rosuvastatin Calcium [Crestor 20 Mg Tablet] 20 MG) PO SCH (22:00)
[2019-03-11] MEDS: APIXABAN 2.5 MG TABLET PO SCH (22:54)
[2019-03-11] MEDS: ATORVASTATIN CALCIUM 40 MG TABLET PO SCH (22:55)
[2019-03-11] MEDS: FAMOTIDINE 20 MG TABLET PO SCH (22:55)
--- NOTE | 2019-03-12 00:15 | ADVANCED CARE ---
- Diagnosis (1) NSTEMI (non-ST elevated myocardial infarction) Diagnosis Current: Yes (2) Elevated troponin Diagnosis Current: Yes (3) Rapid atrial fibrillation Diagnosis Current: Yes Attendance: The patient and myself. Resuscitation Status: Do Not Resuscitate Discussion: The patient and I discussed a wide variety of options for no CODE STATUS including DO NOT RESUSCITATE, DO NOT INTUBATE, chemical code only and other less common restrictions on resuscitation efforts. In the end the patient after deliberation and a good deal more of general discussion determined that he wished to be a DO NOT RESUSCITATE status in the event of a cardiorespiratory arrest. Care Planning Goals: The patient's CODE STATUS will be changed to DO NOT RESUSCITATE Document(s) Completed: Patient's CODE STATUS was entered into his medical record and current medical orders DO NOT RESUSCITATE Time Spent: 19 minutes
[2019-03-12 03:33] LABS: ABSOLUTE EOSINOPHILS # (AUTO) 0.1 10^3/uL (0.0-0.6); ABSOLUTE LYMPHOCYTES (AUTO) 0.6 10^3/uL (0.5-4.7); ABSOLUTE MONOCYTES (AUTO) 0.6 10^3/uL (0.1-1.4); ABSOLUTE NEUT (AUTO) 6.5 10^3/uL (1.7-8.2); BASOPHILS % (AUTO) 0.4 % (0-2); HEMATOCRIT 27.9 % (37.9-51.0); LYMPHOCYTES % (AUTO) 8.2 % (13-45); MEAN CORPUSCULAR HEMOGLOBIN 33.3 pg (27.0-33.4); MEAN CORPUSCULAR HGB CONC 35.6 g/dL (32.0-36.0); MEAN CORPUSCULAR VOLUME 94 fl (80-97); MONOCYTES % (AUTO) 7.8 % (3-13); PLATELET COUNT 280 10^3/uL (150-450); RED BLOOD COUNT 2.98 10^6/uL (4.35-5.55); RED CELL DISTRIBUTION WIDTH 14.1 % (11.5-14.0); SEGMENTED NEUTROPHILS % (AUTO) 82.6 % (42-78); TOTAL CELLS COUNTED % (AUTO) 100 %; WHITE BLOOD COUNT 7.9 10^3/uL (4.0-10.5)
[2019-03-12 03:47] LABS: HEMOGLOBIN 9.9 g/dL (13.5-17.0)
[2019-03-12 03:57] LABS: ANION GAP 7 (5-19); BLOOD UREA NITROGEN 37 mg/dL (7-20); CALCIUM 8.5 mg/dL (8.4-10.2); CARBON DIOXIDE 24 mmol/L (22-30); CHLORIDE 104 mmol/L (98-107); GLUCOSE 89 mg/dL (75-110); PHOSPHORUS 2.9 mg/dL (2.5-4.5); POTASSIUM 4.3 mmol/L (3.6-5.0)
[2019-03-12 04:07] LABS: CREATINE KINASE MB 3.46 ng/mL (<4.55)
[2019-03-12 04:09] LABS: TROPONIN I 2.16 ng/mL
--- NOTE | 2019-03-12 09:56 | RADIOLOGY REPORT (SQ) ---
EXAM DESCRIPTION: CT CHEST WITHOUT COMPLETED DATE/TIME: 03/12/2019 7:58 am REASON FOR STUDY: idiopathic pulmonary fibrosis J84.112 IDIOPATHIC PULMONARY FIBROSIS COMPARISON: None. TECHNIQUE: CT scan performed of the chest without intravenous contrast. Images reviewed with lung, soft tissue and bone windows. Reconstructed coronal and sagittal MPR images reviewed. All images st ored on PACS. All CT scanners at this facility use dose modulation, iterative reconstruction, and/or weight based d osing when appropriate to reduce radiation dose to as low as reasonably achievable (ALARA). [facility]: Dose Right [facility]: CareDose [facility]: Dose Right [facility]: Teradose 4D [facility]: TechFaith RADIATION DOSE: CT Rad equipment meets quality standard of care and radiation dose reduction techniq ues were employed. CTDIvol: 6.8 mGy. DLP: 263 mGy-cm. mGy. LIMITATIONS: No technical limitations. FINDINGS: LUNGS AND PLEURA: Scattered areas of subpleural honeycombing fairly evenly distributed upp er and lower lungs. Infected lung volume estimated 20%. No consolidation, ground-glass attenuation, cysts or nodules. HILAR AND MEDIASTINAL STRUCTURES: Calcified mediastinal and right hilar nodes. HEART AND VASCULAR STRUCTURES: No aneurysm. No pericardial effusion. UPPER ABDOMEN: No significant findings. Limited exam. THYROID AND OTHER SOFT TISSUES: No masses. No adenopathy. BONES: No significant finding. HARDWARE: None in the chest. OTHER: No other significant findings. IMPRESSION: UIP pattern. Mild fibrosis. TECHNICAL DOCUMENTATION: JOB ID: [id number] Quality ID # [id number]: Final reports with documentation of one or more dose reduction techniques (e.g., Au tomated exposure control, adjustment of the mA and/or kV according to patient size, use of iterative reconstruction technique) 2010 [employer]- All Rights Reserved Reading location - IP/workstation name: [email or web address]
[2019-03-12] MEDS: APIXABAN 2.5 MG TABLET PO SCH ×2 (10:09→21:47)
[2019-03-12] MEDS: ASPIRIN 81 MG TABLET, ENT COATED PO SCH (10:10)
[2019-03-12] MEDS: METOPROLOL SUCCINATE 50 MG TAB.SR.24H PO SCH ×2 (10:10→21:47)
[2019-03-12] MEDS: DOCUSATE SODIUM 100 MG CAPSULE PO SCH (10:10)
[2019-03-12] MEDS: FAMOTIDINE 20 MG TABLET PO SCH ×2 (10:10→21:47)
[2019-03-12] MEDS ORDERED: NITROGLYCERIN 0.4 MG/TAB 25 TAB/BOTTLE SL PRN (11:22)
--- NOTE | 2019-03-12 12:45 | PDOC PROGRESS REPORT ---
Subjective Progress Note for:: 03/12/19 Subjective:: MISTY JAIMES is a 88 year old male mated to the hospital for paroxysmal atrial fib. She has a history of this dating back at least 16 years according to the patient. Next year he was put on amiodarone over in [place] but he had a reaction to it and it has caused visual problems. Patient cannot take Multitaq or Dotarem. She states for the last couple of months he has been weak and short of breath but in the last week it has been worse. Patient states that for the last week and several days he has had near syncopal episodes where he gets lightheaded, has not had an actual syncope episode. Patient's garbage collector is Dr. Octavio Jansen, spoken with on the phone he is made recommendations that we put him back on his Lopressor 50 mg twice daily. He stated that he would see the patient and make further recommendations In the emergency room patient was given Cardizem and converted down to a rate of 80. Had been as high as 144 in the emergency room just briefly. Patient's usual troponin was 1.95-second troponin was elevated at 2.76. I have a call into the garbage collector about his rising troponin, however patient is asymptomatic having no chest pain. Could simply be due to his A. fib and RVR. She is currently on Eliquis 2.5 mg twice daily as well as 81 of aspirin and a statin, now have resumed his beta-carlos. 03/04/2019. No acute events overnight. Patient comfortably resting in bed in no apparent distress, on supplemental oxygen, complaining of dyspnea on exertion, denies any chest pain, denies any fever, chills, nausea, vomiting, diarrhea, constipation or any urinary symptoms. Reason For Visit: PAROXYSAL ATRIAL FIB,SVT,SHORTNESS OF BREATH Physical Exam Vital Signs: Temp Pulse Resp BP Pulse Ox 97.6 F 66 18 109/60 97 03/12/19 08:14 03/12/19 08:14 03/12/19 08:14 03/12/19 08:14 03/12/19 12:17 Pulse Oximeter Continuous Start: 03/11/19 19:11 Freq: RTQ4 Status: Active Protocol: Document 03/12/19 12:17 LDI (Rec: 03/12/19 12:18 LDI [email or web address]) Pulse Oximetry Assessment Oxygen Saturation (92-100) 97 Oxygen Flow Rate (L/min) 4.5 Oxygen Delivery Method Nasal Cannula Fraction of Inspired Oxygen (FIO2) 38 Equipment Usage Equipment in Use Continuous SpO2 Machine # 5 Additional RT Notes Other Titrated O2 down to 4L NC. Intake & Output 03/11/19 03/12/19 03/13/19 06:59 06:59 06:59 Intake Total 260 Output Total 800 Balance -540 Weight 73.9 kg General appearance: PRESENT: no acute distress, well-developed, well-nourished Head exam: PRESENT: atraumatic, normocephalic Neck exam: ABSENT: carotid bruit, JVD, lymphadenopathy, thyromegaly Respiratory exam: PRESENT: crackles - Diffuse crackles. ABSENT: rales, rhonchi, wheezes GI/Abdominal exam: PRESENT: normal bowel sounds, soft. ABSENT: distended, guarding, mass, organolmegaly, rebound, tenderness Neurological exam: PRESENT: alert, awake, oriented to person, oriented to place, oriented to time, oriented to situation, CN II-XII grossly intact. ABSENT: motor sensory deficit Results Laboratory Results: 03/12/19 03:17 03/12/19 03:17 03/11/19 03/11/19 03/12/19 09:00 17:08 03:17 WBC 7.9 RBC 2.98 L Hgb 9.9 L D Hct 27.9 L MCV 94 MCH 33.3 MCHC 35.6 RDW 14.1 H Plt Count 280 Seg Neutrophils % 82.6 H Sodium Potassium Chloride Carbon Dioxide Anion Gap BUN Creatinine Est GFR ( Amer) Glucose Calcium Phosphorus Magnesium TSH 4.36 Urine Color YELLOW Urine Appearance CLEAR Urine pH 5.0 Ur Specific [place] 1.008 Urine Protein NEGATIVE Urine Glucose (UA) NEGATIVE Urine Ketones NEGATIVE Urine Blood SMALL H Urine Nitrite NEGATIVE Ur Leukocyte Esterase NEGATIVE Urine WBC (Auto) 0 Urine RBC (Auto) 0 03/12/19 03/12/19 03:17 03:17 WBC RBC Hgb Hct MCV MCH MCHC RDW Plt Count Seg Neutrophils % Sodium 135.3 L Potassium 4.3 Chloride 104 Carbon Dioxide 24 Anion Gap 7 BUN 37 H Creatinine 1.85 H Est GFR ( Amer) 42 L Glucose 89 Calcium 8.5 Phosphorus 2.9 Magnesium 1.9 TSH 2.71 Urine Color Urine Appearance Urine pH Ur Specific [place] Urine Protein Urine Glucose (UA) Urine Ketones Urine Blood Urine Nitrite Ur Leukocyte Esterase Urine WBC (Auto) Urine RBC (Auto) 03/11/19 03/11/19 03/11/19 09:00 13:57 20:50 CK-MB (CK-2) 6.70 H 6.96 H Troponin I 1.950 2.760 2.340 NT-Pro-B Natriuret Pep 7170 H 03/12/19 03/12/19 03:17 03:17 CK-MB (CK-2) 3.46 Troponin I 2.160 NT-Pro-B Natriuret Pep 4740 H Impressions: Chest X-Ray 03/11/19 10:11 IMPRESSION: Chronic appearing bilateral interstitial lung disease. Findings have slightly progressed when compared to prior exam. Chest CT 03/12/19 00:00 IMPRESSION: UIP pattern. Mild fibrosis. Assessment and Plan - Diagnosis (1) Acute respiratory failure with hypoxia Is this a current diagnosis for this admission?: Yes Plan: Most like due to underlying idiopathic pulmonary fibrosis complicated by A. fib RVR and PVCs. Continue telemetry, supplemental oxygen, PRN duo nebs. We will evaluate for home oxygen. (2) Idiopathic pulmonary fibrosis Is this a current diagnosis for this admission?: Yes Plan: CT chest positive for mild pulmonary fibrosis UIP pattern. Not sure if this is caused by amiodarone exposure as patient used to take amiodarone for A. fib RVR. We will consult pulmonology. Plan as per #1. (3) Elevated troponin Is this a current diagnosis for this admission?: Yes Plan: Denies any chest pain. Multifactorial. NSTEMI type II, complicated due to underlying A. fib RVR, idiopathic pulmonary fibrosis, KIRA and CHF. Continue antiplatelets, beta-blockers, statins, PRN morphine, PRN nitroglycerin. Trend troponins. Pending 2D echo. Cardiology on board. Recommendations noted. (4) Atrial fibrillation with RVR Is this a current diagnosis for this admission?: Yes Plan: Rate controlled. Anticoagulated. Off of Cardizem drip. Continue beta-blockers, uptitrate as tolerated. (5) CAD (coronary artery disease) Qualifiers: Associated angina: without angina Is this a current diagnosis for this admission?: Yes Plan: Restart home meds. (6) Former smoker Is this a current diagnosis for this admission?: Yes Plan: Encouraged abstinence. (7) Acute kidney injury superimposed on CKD Is this a current diagnosis for this admission?: Yes Plan: Prerenal. Baseline creatinine 1.3. Nonoliguric. Electrolytes WNL. Monitor volume status, avoid nephrotoxic meds. Hold Lasix.
--- NOTE | 2019-03-12 18:22 | XCELERA REPORT ---
[address] [address] Transthoracic Echocardiogram Report Name: MISTY JAIMES Age: 88 yrs Gender: Male : 1930 Patient Status: Inpatient Patient Location: [facility]^A Study Date: 03/12/2019 03:15 PM Height: 70 in Weight: 162 lb BSA: 1.9 m2 Reason For Study: Evaluate cause for cardiac dysrythmia Ordering Physician: RAMONE PRUETT Performed By: Linh Graves Interpretation Summary Poor Apical views. Min Post. pericardial effusion. Mild calcified aortic root. Mild nonstenotic calcific aortic valvular disease, no AR. Mild mitral annular calcification, no MS, no MVP, no MR and no LA enlargement. (DARIA 33). Mild concentric LVH with LVEF 60-65% with stage I LVDD. Except for hypokinetic IVS, no other segmental regional wall motion abnormality. No LV enlargement. Trace TR unable to sample to derive RVSP to r/o pulm HTN. Normal RH size, No subcostals. MMode/2D Measurements & Calculations RVDd: 3.2 cm LVIDd: 4.8 cm FS: 37.2 % Ao root diam: 3.2 cm IVSd: 0.94 cm LVIDs: 3.0 cm EDV(Teich): Ao root area: LVPWd: 0.87 cm 107.1 ml ESV(Teich): 35.3 ml7.9 cm2 LA dimension: 4.1 cm EF(Teich): 67.1 % LVLd ap4: 7.9 cm SV(MOD-sp4): EDV(MOD-sp4): 46.0 ml 77.0 ml LVLs ap4: 6.8 cm ESV(MOD-sp4): 31.0 ml EF(MOD-sp4): 59.7 % Doppler Measurements & Calculations MV E max dylan: MV P1/2t max dylan: Ao V2 max: LV V1 max P.6 cm/sec 72.2 cm/sec 160.2 cm/sec 3.3 mmHg MV A max dylan: MV P1/2t: 113.8 msec Ao max P.3 mmHgLV V1 max: 93.8 cm/sec 91.3 cm/sec MV E/A: 0.76 MVA(P1/2t): 1.9 cm2 MV dec slope: 185.9 cm/sec2 MV dec time: 0.26 sec PA V2 max: PI end-d dylan: MV P1/2t-pr_phl: 102.7 cm/sec 93.1 cm/sec 113.8 msec PA max P.2 mmHg I WMSI = 1.31 % Normal = 69 Segments Size X - Cannot 1 - Normal 2 - 3 - Akinetic4 - 1-2 small Interpret Hypokinetic Dyskinetic 3-5 moderate 5 - 6-14 large Aneurysmal 15-16 diffuse : RAMONE PRUETT, Ramone
[2019-03-12 18:41] LABS: ARTERIAL BLOOD BASE EXCESS 0.9 mmol/L; ARTERIAL BLOOD H2CO3 1.03 mmol/L (1.05-1.35); ARTERIAL BLOOD HCO3 24.8 mmol/L (20-24); ARTERIAL BLOOD O2 SATURATION 88.9 % (94-98); ARTERIAL BLOOD PCO2 34.2 mmHg (35-45); ARTERIAL BLOOD PH 7.48 (7.35-7.45); ARTERIAL BLOOD TOTAL CO2 25.8 mmol/L (23-27)
[2019-03-12 18:43] LABS: APPEARANCE,URINE CLEAR; BILIRUBIN,URINE NEGATIVE (NEGATIVE); COLOR,URINE YELLOW; GLUCOSE, URINE NEGATIVE (NEGATIVE); KETONES,URINE NEGATIVE (NEGATIVE); LEUKOCYTE ESTERASE,URINE NEGATIVE (NEGATIVE); NITRITE,URINE NEGATIVE (NEGATIVE); PROTEIN,URINE NEGATIVE (NEGATIVE); URINE SPECIFIC GRAVITY 1.014; UROBILINOGEN,URINE NEGATIVE mg/dL (<2.0)
[2019-03-12 18:44] LABS: ARTERIAL BLOOD FIO2 ROOM AIR
[2019-03-12] MEDS: ATORVASTATIN CALCIUM 40 MG TABLET PO SCH (21:47)
[2019-03-13 05:06] LABS: ABSOLUTE EOSINOPHILS # (AUTO) 0.2 10^3/uL (0.0-0.6); ABSOLUTE LYMPHOCYTES (AUTO) 0.9 10^3/uL (0.5-4.7); ABSOLUTE MONOCYTES (AUTO) 0.8 10^3/uL (0.1-1.4); ABSOLUTE NEUT (AUTO) 6.9 10^3/uL (1.7-8.2); BASOPHILS % (AUTO) 0.5 % (0-2); EOSINOPHILS % (AUTO) 2.7 % (0-6); HEMATOCRIT 30.1 % (37.9-51.0); HEMOGLOBIN 10.8 g/dL (13.5-17.0); LYMPHOCYTES % (AUTO) 10.6 % (13-45); MEAN CORPUSCULAR HEMOGLOBIN 33.9 pg (27.0-33.4); MEAN CORPUSCULAR HGB CONC 35.9 g/dL (32.0-36.0); MEAN CORPUSCULAR VOLUME 94 fl (80-97); MONOCYTES % (AUTO) 8.7 % (3-13); PLATELET COUNT 354 10^3/uL (150-450); RED BLOOD COUNT 3.19 10^6/uL (4.35-5.55); RED CELL DISTRIBUTION WIDTH 14.1 % (11.5-14.0); SEGMENTED NEUTROPHILS % (AUTO) 77.5 % (42-78); TOTAL CELLS COUNTED % (AUTO) 100 %; WHITE BLOOD COUNT 8.9 10^3/uL (4.0-10.5)
[2019-03-13 05:34] LABS: ANION GAP 10 (5-19); BLOOD UREA NITROGEN 36 mg/dL (7-20); CALCIUM 8.7 mg/dL (8.4-10.2); CARBON DIOXIDE 24 mmol/L (22-30); CHLORIDE 104 mmol/L (98-107); GLUCOSE 95 mg/dL (75-110); POTASSIUM 4.3 mmol/L (3.6-5.0)
[2019-03-13 05:47] LABS: TROPONIN I 1.24 ng/mL
[2019-03-13] MEDS: METOPROLOL SUCCINATE 50 MG TAB.SR.24H PO SCH ×2 (10:00→21:37)
[2019-03-13] MEDS: ASPIRIN 81 MG TABLET, ENT COATED PO SCH (10:00)
[2019-03-13] MEDS: APIXABAN 2.5 MG TABLET PO SCH ×2 (10:00→21:36)
[2019-03-13] MEDS: DOCUSATE SODIUM 100 MG CAPSULE PO SCH (10:00)
[2019-03-13] MEDS: FAMOTIDINE 20 MG TABLET PO SCH ×2 (10:00→21:36)
--- NOTE | 2019-03-13 10:14 | PDOC PROGRESS REPORT ---
Subjective Progress Note for:: 03/13/19 Subjective:: MISTY JAIMES is a 88 year old male mated to the hospital for paroxysmal atrial fib. She has a history of this dating back at least 16 years according to the patient. Next year he was put on amiodarone over in [place] but he had a reaction to it and it has caused visual problems. Patient cannot take Multitaq or Dotarem. She states for the last couple of months he has been weak and short of breath but in the last week it has been worse. Patient states that for the last week and several days he has had near syncopal episodes where he gets lightheaded, has not had an actual syncope episode. Patient's fashion marketer is Dr. Octavio Jansen, spoken with on the phone he is made recommendations that we put him back on his Lopressor 50 mg twice daily. He stated that he would see the patient and make further recommendations In the emergency room patient was given Cardizem and converted down to a rate of 80. Had been as high as 144 in the emergency room just briefly. Patient's usual troponin was 1.95-second troponin was elevated at 2.76. I have a call into the fashion marketer about his rising troponin, however patient is asymptomatic having no chest pain. Could simply be due to his A. fib and RVR. She is currently on Eliquis 2.5 mg twice daily as well as 81 of aspirin and a statin, now have resumed his beta-carlos. 03/04/2019. No acute events overnight. Patient comfortably resting in bed in no apparent distress, on supplemental oxygen, complaining of dyspnea on exertion, denies any chest pain, denies any fever, chills, nausea, vomiting, diarrhea, constipation or any urinary symptoms. 03/13/2019. No acute events overnight. Patient resting comfortably in bed in no apparent distress, shortness of breath improving, patient was ambulated ye sterday and was noted to have significant drop on his SPO2 upon ambulation, patient is pending a PFT and pulmonology evaluation before he can be safely discharged home. Denies any fever, chills, nausea, vomiting, diarrhea, constipation or any urinary symptoms. P.o. tolerant, having normal bowel and bladder movements. Reason For Visit: PAROXYSAL ATRIAL FIB,SVT,SHORTNESS OF BREATH Physical Exam Vital Signs: Temp Pulse Resp BP Pulse Ox 98.2 F 70 18 128/55 H 93 03/13/19 08:34 03/13/19 08:34 03/13/19 08:34 03/13/19 08:34 03/13/19 08:34 Pulse Oximeter Continuous Start: 03/11/19 19:11 Freq: RTQ4 Status: Active Protocol: Document 03/13/19 07:57 J (Rec: 03/13/19 07:58 J [email or web address]) Pulse Oximetry Assessment Oxygen Saturation (92-100) 90 Oxygen Flow Rate (L/min) 4 Oxygen Delivery Method Nasal Cannula Fraction of Inspired Oxygen (FIO2) 36 Equipment Usage Equipment in Use Continuous SpO2 Machine # 5 Intake & Output 03/12/19 03/13/19 03/14/19 06:59 06:59 06:59 Intake Total 260 800 300 Output Total 800 1250 Balance -540 -450 300 Weight 73.9 kg 73.7 kg General appearance: PRESENT: no acute distress, well-developed, well-nourished Head exam: PRESENT: atraumatic, normocephalic Respiratory exam: PRESENT: crackles. ABSENT: rales, rhonchi, wheezes Cardiovascular exam: PRESENT: RRR. ABSENT: diastolic murmur, rubs, systolic murmur GI/Abdominal exam: PRESENT: normal bowel sounds, soft. ABSENT: distended, guarding, mass, organolmegaly, rebound, tenderness Neurological exam: PRESENT: alert, awake, oriented to person, oriented to place, oriented to time, oriented to situation, CN II-XII grossly intact. ABSENT: motor sensory deficit Results Laboratory Results: 03/13/19 04:34 03/13/19 04:34 03/12/19 03/12/19 03/12/19 03:17 18:00 18:00 WBC RBC Hgb Hct MCV MCH MCHC RDW Plt Count Seg Neutrophils % Carbonic Acid HCO3/H2CO3 Ratio ABG pH ABG pCO2 ABG pO2 ABG HCO3 ABG O2 Saturation ABG Base Excess FiO2 Sodium Potassium Chloride Carbon Dioxide Anion Gap BUN Creatinine Est GFR ( Amer) Glucose Calcium TSH 2.71 Urine Color YELLOW Urine Appearance CLEAR Urine pH 5.0 Ur Specific [place] 1.014 Urine Protein NEGATIVE Urine Glucose (UA) NEGATIVE Urine Ketones NEGATIVE Urine Blood NEGATIVE Urine Nitrite NEGATIVE Ur Leukocyte Esterase NEGATIVE Urine WBC (Auto) 3 Urine RBC (Auto) 0 Stool Occult Blood NEGATIVE 03/12/19 03/13/19 03/13/19 18:00 04:34 04:34 WBC 8.9 RBC 3.19 L Hgb 10.8 L Hct 30.1 L MCV 94 MCH 33.9 H MCHC 35.9 RDW 14.1 H Plt Count 354 Seg Neutrophils % 77.5 Carbonic Acid 1.03 L HCO3/H2CO3 Ratio 24:1 ABG pH 7.48 H ABG pCO2 34.2 L ABG pO2 51.0 L ABG HCO3 24.8 H ABG O2 Saturation 88.9 L ABG Base Excess 0.9 FiO2 ROOM AIR Sodium 138.0 Potassium 4.3 Chloride 104 Carbon Dioxide 24 Anion Gap 10 BUN 36 H Creatinine 1.67 H Est GFR ( Amer) 47 L Glucose 95 Calcium 8.7 TSH Urine Color Urine Appearance Urine pH Ur Specific [place] Urine Protein Urine Glucose (UA) Urine Ketones Urine Blood Urine Nitrite Ur Leukocyte Esterase Urine WBC (Auto) Urine RBC (Auto) Stool Occult Blood 03/11/19 03/11/19 03/11/19 09:00 13:57 20:50 CK-MB (CK-2) 6.70 H 6.96 H Troponin I 1.950 2.760 2.340 NT-Pro-B Natriuret Pep 7170 H 03/12/19 03/12/19 03/13/19 03:17 03:17 04:34 CK-MB (CK-2) 3.46 Troponin I 2.160 1.240 NT-Pro-B Natriuret Pep 4740 H 1750 H Impressions: Chest X-Ray 03/11/19 10:11 IMPRESSION: Chronic appearing bilateral interstitial lung disease. Findings have slightly progressed when compared to prior exam. Chest CT 03/12/19 00:00 IMPRESSION: UIP pattern. Mild fibrosis. Assessment and Plan - Diagnosis (1) Acute on chronic respiratory failure with hypoxemia Is this a current diagnosis for this admission?: Yes Plan: Most like due to underlying idiopathic pulmonary fibrosis complicated by A. fib RVR and PVCs. 03/04/2019. ABG: pH 7.48, PCO2 34.2, PO2 51.0, FiO2 RA. Continue telemetry, supplemental oxygen, PRN duo nebs. Patient qualifies for home oxygen. Will consult discharge planning. (2) Chronic respiratory failure with hypoxia Is this a current diagnosis for this admission?: Yes Plan: Due to idiopathic pulmonary fibrosis. Plan as per #1. (3) Idiopathic pulmonary fibrosis Is this a current diagnosis for this admission?: Yes Plan: CT chest positive for mild pulmonary fibrosis UIP pattern. Not sure if this is caused by amiodarone exposure as patient used to take amioda [place] for A. fib RVR. Pending PFT. Pulmonology consulted. Recommendations pending. (4) Elevated troponin Is this a current diagnosis for this admission?: Yes Plan: Trending down. Denies any chest pain. Multifactorial. NSTEMI type II, complicated due to underlying A. fib RVR, idiopathic pulmonary fibrosis, KIRA and CHF. Continue antiplatelets, beta-blockers, statins, PRN morphine, PRN nitroglycerin. 03/12/2019. 2D echo suboptimal. Mild concentric left ventricular hypertrophy, ejection fraction 66 5% with a stage I LVDD. Cardiology on board. Recommendations noted. (5) Atrial fibrillation with RVR Is this a current diagnosis for this admission?: Yes Plan: Rate controlled. Anticoagulated. Off of Cardizem drip. Continue beta-blockers, uptitrate as tolerated. (6) CAD (coronary artery disease) Qualifiers: Associated angina: without angina Is this a current diagnosis for this admission?: Yes Plan: Denies any anginal symptoms. Continue antiplatelets, statins, beta-blockers, resume ARB once kidney function has returned to baseline or back to normal. (7) Former smoker Is this a current diagnosis for this admission?: Yes Plan: Encouraged abstinence. (8) Acute kidney injury superimposed on CKD Is this a current diagnosis for this admission?: Yes Plan: Improving. Prerenal. Baseline creatinine 1.3. Nonoliguric. Electrolytes WNL. Monitor volume status, avoid nephrotoxic meds. Hold Lasix and ARB. (9) Acute on chronic combined systolic (congestive) and diastolic (congestive) heart failure Is this a current diagnosis for this admission?: Yes Plan: BNP on admission 7170. 03/12/2019. 2D echo suboptimal. Mild concentric left ventricular hypertrophy, ejection fraction 66 5% with a stage I LVDD. Cardiac diet, volume restriction, daily weight, beta-blockers. Hold Lasix and ARB due to worsening renal function. Resume once renal function is improved.
[2019-03-13] MEDS: ATORVASTATIN CALCIUM 40 MG TABLET PO SCH (21:36)
[2019-03-14 05:29] LABS: ANION GAP 6 (5-19); BLOOD UREA NITROGEN 36 mg/dL (7-20); CALCIUM 8.5 mg/dL (8.4-10.2); CARBON DIOXIDE 26 mmol/L (22-30); CHLORIDE 107 mmol/L (98-107); GLUCOSE 99 mg/dL (75-110); POTASSIUM 4.7 mmol/L (3.6-5.0)
[2019-03-14] MEDS: DOCUSATE SODIUM 100 MG CAPSULE PO SCH (11:02)
[2019-03-14] MEDS: METOPROLOL SUCCINATE 50 MG TAB.SR.24H PO SCH (11:03)
[2019-03-14] MEDS: APIXABAN 2.5 MG TABLET PO SCH ×2 (11:03→21:00)
[2019-03-14] MEDS: ASPIRIN 81 MG TABLET, ENT COATED PO SCH (11:03)
[2019-03-14] MEDS: FAMOTIDINE 20 MG TABLET PO SCH ×2 (11:03→21:00)
--- NOTE | 2019-03-14 12:17 | RADIOLOGY REPORT (SQ) ---
EXAM DESCRIPTION: U/S RETROPERITON (RENAL/AORTA) COMPLETED DATE/TIME: 03/14/2019 11:57 am REASON FOR STUDY: KIRA J84.112 IDIOPATHIC PULMONARY FIBROSIS I48.20 CHRONIC ATRIAL FIBRILLATION, UN SPECIFIED COMPARISON: CT chest 03/12/2019 TECHNIQUE: Dynamic and static grayscale images acquired of the kidneys and bladder and recorded on P ACS. Additional selected color Doppler and spectral images recorded. LIMITATIONS: None. FINDINGS: RIGHT KIDNEY: 11 cm in length. Diffuse increased cortical echogenicity with normal cortic al thickness. 1 cm right midpole cortical cyst, 1.3 cm right lower pole cortical cyst. No gross sto monica or hydronephrosis. LEFT KIDNEY: 11 cm in length. Diffuse increased cortical echogenicity with normal cortical thicknes s. 1 cm left midpole cyst, 1.6 cm and 2 cm left lower pole cortical cysts. 4 cm left lower pole cor tical cyst. No gross stones or hydronephrosis. BLADDER: No gross bladder calculi. Incompletely distended OTHER FINDINGS: No other significant finding. IMPRESSION: Echogenic kidneys from medical renal disease. Bilateral renal cortical cysts. No hydronephrosis TECHNICAL DOCUMENTATION: JOB ID: [id number] [employer], [employer]- All Rights Reserved Reading location - IP/workstation name: [email or web address]
--- NOTE | 2019-03-14 15:48 | PDOC PROGRESS REPORT ---
Subjective Progress Note for:: 03/14/19 Subjective:: MISTY JAIMES is a 88 year old male mated to the hospital for paroxysmal atrial fib. She has a history of this dating back at least 16 years according to the patient. Next year he was put on amiodarone over in [place] but he had a reaction to it and it has caused visual problems. Patient cannot take Multitaq or Dotarem. She states for the last couple of months he has been weak and short of breath but in the last week it has been worse. Patient states that for the last week and several days he has had near syncopal episodes where he gets lightheaded, has not had an actual syncope episode. Patient's frame pulley mortising machine operator is Dr. Octavio Jansen, spoken with on the phone he is made recommendations that we put him back on his Lopressor 50 mg twice daily. He stated that he would see the patient and make further recommendations In the emergency room patient was given Cardizem and converted down to a rate of 80. Had been as high as 144 in the emergency room just briefly. Patient's usual troponin was 1.95-second troponin was elevated at 2.76. I have a call into the frame pulley mortising machine operator about his rising troponin, however patient is asymptomatic having no chest pain. Could simply be due to his A. fib and RVR. She is currently on Eliquis 2.5 mg twice daily as well as 81 of aspirin and a statin, now have resumed his beta-carlos. 03/04/2019. No acute events overnight. Patient comfortably resting in bed in no apparent distress, on supplemental oxygen, complaining of dyspnea on exertion, denies any chest pain, denies any fever, chills, nausea, vomiting, diarrhea, constipation or any urinary symptoms. 03/13/2019. No acute events overnight. Patient resting comfortably in bed in no apparent distress, shortness of breath improving, patient was ambulated ye sterday and was noted to have significant drop on his SPO2 upon ambulation, patient is pending a PFT and pulmonology evaluation before he can be safely discharged home. Denies any fever, chills, nausea, vomiting, diarrhea, constipation or any urinary symptoms. P.o. tolerant, having normal bowel and bladder movements. 03/14/2019. No acute events overnight. Still demanding high oxygen, complaining of dyspnea on exertion, denies any fever, chills, nausea, vomiting, diarrhea, constipation or any urinary symptoms. Patient could potentially be discharged home however his oxygen supplies has not been arranged. Reason For Visit: PAROXYSAL ATRIAL FIB,SVT,SHORTNESS OF BREATH Physical Exam Vital Signs: Temp Pulse Resp BP Pulse Ox 98.1 F 69 17 107/40 L 95 03/14/19 12:20 03/14/19 12:20 03/14/19 12:20 03/14/19 12:20 03/14/19 13:23 Pulse Oximeter Continuous Start: 03/11/19 19:11 Freq: RTQ4 Status: Active Protocol: Document 03/14/19 13:23 HCR (Rec: 03/14/19 13:23 HCR [id number]) Pulse Oximetry Assessment Oxygen Saturation (92-100) 95 Oxygen Flow Rate (L/min) 3 Oxygen Delivery Method Nasal Cannula Equipment Usage Equipment in Use Continuous SpO2 Machine # 5 Intake & Output 03/13/19 03/14/19 03/15/19 06:59 06:59 06:59 Intake Total 800 1480 360 Output Total 1250 500 400 Balance -450 980 -40 Weight 73.7 kg 72.8 kg General appearance: PRESENT: no acute distress, well-developed, well-nourished Head exam: PRESENT: atraumatic, normocephalic Respiratory exam: PRESENT: clear to auscultation edis. ABSENT: rales, rhonchi, wheezes Cardiovascular exam: PRESENT: RRR. ABSENT: diastolic murmur, rubs, systolic murmur GI/Abdominal exam: PRESENT: normal bowel sounds, soft. ABSENT: distended, guarding, mass, organolmegaly, rebound, tenderness Neurological exam: PRESENT: alert, awake, oriented to person, oriented to place, oriented to time, oriented to situation, CN II-XII grossly intact. ABSENT: motor sensory deficit Results Laboratory Results: 03/13/19 04:34 03/14/19 04:14 03/14/19 03/14/19 04:14 13:47 Sodium 139.2 Potassium 4.7 Chloride 107 Carbon Dioxide 26 Anion Gap 6 BUN 36 H Creatinine 1.61 H Est GFR ( Amer) 49 L Glucose 99 Calcium 8.5 PTH Intact 45.0 01/27/20 01/27/20 01/27/20 09:00 13:57 20:50 CK-MB (CK-2) 6.70 H 6.96 H Troponin I 1.950 2.760 2.340 NT-Pro-B Natriuret Pep 7170 H 03/12/19 03/12/19 03/13/19 03:17 03:17 04:34 CK-MB (CK-2) 3.46 Troponin I 2.160 1.240 NT-Pro-B Natriuret Pep 4740 H 1750 H Impressions: Chest X-Ray 03/11/19 10:11 IMPRESSION: Chronic appearing bilateral interstitial lung disease. Findings have slightly progressed when compared to prior exam. Chest CT 03/12/19 00:00 IMPRESSION: UIP pattern. Mild fibrosis. Renal Ultrasound 03/14/19 09:42 IMPRESSION: Echogenic kidneys from medical renal disease. Bilateral renal cortical cysts. No hydronephrosis Assessment and Plan - Diagnosis (1) Acute on chronic respiratory failure with hypoxemia Is this a current diagnosis for this admission?: Yes Plan: No significant improvement. Still requiring 4 to 5 L PO2 to maintain normal SPO2. Most like due to underlying idiopathic pulmonary fibrosis complicated by A. fib RVR and PVCs. 03/04/2019. ABG: pH 7.48, PCO2 34.2, PO2 51.0, FiO2 RA. Continue telemetry, supplemental oxygen, PRN duo nebs. Patient qualifies for home oxygen. Discharge planning consulted. (2) Chronic respiratory failure with hypoxia Is this a current diagnosis for this admission?: Yes Plan: Due to idiopathic pulmonary fibrosis. Plan as per #1. (3) Idiopathic pulmonary fibrosis Is this a current diagnosis for this admission?: Yes Plan: CT chest positive for mild pulmonary fibrosis UIP pattern. Not sure if this is caused by amiodarone exposure as patient used to take amiodarone for A. fib RVR. Pending PFT. Patient will greatly benefit from pulmonology evaluation but unfortunately Dr. Weeks is currently available for consult. Patient was notified that he would have to follow-up with pulmonology as outpatient preferably somewhere in [place] however he stated he may not be able to travel to [place] and he would like to see a temple meat cutter here at [place]. We will try to obtain an outpatient pulmonology appointment here at [place]. (4) Elevated troponin Is this a current diagnosis for this admission?: Yes Plan: Trending down. Denies any chest pain. Multifactorial. NSTEMI type II, complicated due to underlying A. fib RVR, idiopathic pulmonary fibrosis, KIRA and CHF. Continue antiplatelets, beta-blockers, statins, PRN morphine, PRN nitroglycerin. 03/12/2019. 2D echo suboptimal. Mild concentric left ventricular hypertrophy, ejection fraction 66 5% with a stage I LVDD. Cardiology on board. Recommendations noted. (5) Atrial fibrillation with RVR Is this a current diagnosis for this admission?: Yes Plan: Rate controlled. Anticoagulated. Off of Cardizem drip. Continue beta-blockers, uptitrate as tolerated. (6) CAD (coronary artery disease) Qualifiers: Associated angina: without angina Is this a current diagnosis for this admission?: Yes Plan: Denies any anginal symptoms. Continue antiplatelets, statins, beta-blockers, resume ARB once kidney function has returned to baseline or back to normal. (7) Former smoker Is this a current diagnosis for this admission?: Yes Plan: Encouraged abstinence. (8) Acute kidney injury superimposed on CKD Is this a current diagnosis for this admission?: Yes Plan: Improving. Not back to baseline. Prerenal. Baseline creatinine 1.3. Nonoliguric. Electrolytes WNL. Renal ultrasound suggestive of medical renal disease. PTH WNL. Monitor volume status, avoid nephrotoxic meds. Hold Lasix and ARB. Nephrology consulted. Recommendations pending. (9) Acute on chronic combined systolic (congestive) and diastolic (congestive) heart failure Is this a current diagnosis for this admission?: Yes Plan: BNP on admission 7170. 03/12/2019. 2D echo suboptimal. Mild concentric left ventricular hypertrophy, ejection fraction 66 5% with a stage I LVDD. Cardiac diet, volume restriction, daily weight, beta-blockers. Hold Lasix and ARB due to worsening renal function. Resume once renal function is improved.
[2019-03-14] MEDS: ATORVASTATIN CALCIUM 40 MG TABLET PO SCH (21:00)
[2019-03-15 05:28] LABS: ANION GAP 6 (5-19); BLOOD UREA NITROGEN 30 mg/dL (7-20); CALCIUM 8.4 mg/dL (8.4-10.2); CARBON DIOXIDE 25 mmol/L (22-30); CHLORIDE 107 mmol/L (98-107); GLUCOSE 86 mg/dL (75-110); POTASSIUM 4.3 mmol/L (3.6-5.0)
[2019-03-15] MEDS: DOCUSATE SODIUM 100 MG CAPSULE PO SCH (10:30)
[2019-03-15] MEDS: FAMOTIDINE 20 MG TABLET PO SCH (10:30)
[2019-03-15] MEDS: METOPROLOL SUCCINATE 50 MG TAB.SR.24H PO SCH (10:30)
[2019-03-15] MEDS: APIXABAN 2.5 MG TABLET PO SCH (10:30)
[2019-03-15] MEDS: ASPIRIN 81 MG TABLET, ENT COATED PO SCH (10:30)
[2019-03-15 12:20] VITALS: BP 106/46
--- NOTE | 2019-03-17 10:50 | PDOC DISCHARGE SUMMARY ---
Impression - Admit/DC Date/PCP Admission Date/Primary Care Provider: 03/11/19 11:18 RAMONE JANSEN MD Discharge Date: 03/15/19 - Discharge Diagnosis (1) Acute on chronic respiratory failure with hypoxemia Is this a current diagnosis for this admission?: Yes (2) Chronic respiratory failure with hypoxia Is this a current diagnosis for this admission?: Yes (3) Idiopathic pulmonary fibrosis Is this a current diagnosis for this admission?: Yes (4) Elevated troponin Is this a current diagnosis for this admission?: Yes (5) Atrial fibrillation with RVR Is this a current diagnosis for this admission?: Yes (6) CAD (coronary artery disease) Is this a current diagnosis for this admission?: Yes (7) Former smoker Is this a current diagnosis for this admission?: Yes (8) Acute kidney injury superimposed on CKD Is this a current diagnosis for this admission?: Yes (9) Acute on chronic combined systolic (congestive) and diastolic (congestive) heart failure Is this a current diagnosis for this admission?: Yes - Additional Information Resuscitation Status: Do Not Resuscitate Discharge Diet: As Tolerated Discharge Activity: Activity As Tolerated Referrals: VANCE WEEKS MD [ACTIVE STAFF] - 04/10/19 1:30 pm RAMONE JANSEN MD [Primary Care Provider] - 03/20/19 11:15 am Prescriptions: Lisinopril [Prinivil] 20 mg PO DAILY 30 Days #30 tablet Metoprolol Succinate [Toprol Xl 50 mg Tab.sr] 50 mg PO DAILY 30 Days #30 tab.sr.24h Home Medications: Apixaban [Eliquis 2.5 mg Tablet] 2.5 mg PO Q12 03/11/19 Aspirin [Ecotrin 81 mg EC Tablet] 81 mg PO DAILY 03/11/19 Rosuvastatin Calcium [Crestor 20 mg Tablet] 20 mg PO QHS 03/11/19 Lisinopril [Prinivil] 20 mg PO DAILY 30 Days #30 tablet 03/15/19 Metoprolol Succinate [Toprol Xl 50 mg Tab.sr] 50 mg PO DAILY 30 Days #30 tab.sr.24h 03/15/19 History of Present Illiness History of Present Illness: MISTY AJIMES is a 88 year old male mated to the hospital for paroxysmal atrial fib. She has a history of this dating back at least 16 years according to the patient. Next year he was put on amiodarone over in [place] but he had a reaction to it and it has caused visual problems. Patient cannot take Multitaq or Dotarem. She states for the last couple of months he has been weak and short of breath but in the last week it has been worse. Patient states that for the last week and several days he has had near syncopal episodes where he gets lightheaded, has not had an actual syncope episode. Patient's low pressure firer is Dr. Ramone Jansen, spoken with on the phone he is made recommendations that we put him back on his Lopressor 50 mg twice daily. He stated that he would see the patient and make further recommendations In the emergency room patient was given Cardizem and converted down to a rate of 80. Had been as high as 144 in the emergency room just briefly. Hospital Course Hospital Course: (1) Acute on chronic respiratory failure with hypoxemia Still requiring 4 to 5 L PO2 to maintain normal SPO2. Was discharged on supplemental SPO2. Most like due to underlying idiopathic pulmonary fibrosis complicated by A. fib RVR and PVCs. 03/04/2019. ABG: pH 7.48, PCO2 34.2, PO2 51.0, FiO2 RA. Was admitted to telemetry, supplemental oxygen, PRN duo nebs. (2) Chronic respiratory failure with hypoxia Due to idiopathic pulmonary fibrosis. Plan as per #1. (3) Idiopathic pulmonary fibrosis CT chest positive for mild pulmonary fibrosis UIP pattern. Not sure if this is caused by amiodarone exposure as patient used to take amiodarone for A. fib RVR. Patient will greatly benefit from pulmonology evaluation but unfortunately Dr. Weeks is currently not available for consult. Patient was notified that he would have to follow-up with pulmonology as outpatient preferably somewhere in [place] however he stated he may not be able to travel to [place] and he would like to see a board of education secretary here at [place]. An appointment was obtained with Dr. Weeks as outpatient. (4) Elevated troponin Trended down. Denied any chest pain. Multifactorial. NSTEMI type II, complicated due to underlying A. fib RVR, idiopathic pulmonary fibrosis, KIRA and CHF. Was continued on antiplatelets, beta-blockers, statins, PRN morphine, PRN nitroglycerin. 03/12/2019. 2D echo suboptimal. Mild concentric left ventricular hypertrophy, ejection fraction 66 5% with a stage I LVDD. Dr. Jansen cardiology was consulted. Recommendations noted. An appointment with Dr. Jansen his low pressure firer will obtain as outpatient. (5) Atrial fibrillation with RVR Rate controlled. Anticoagulated. Patient was started on Cardizem drip. Drip was transitioned to home beta- blockers. (6) CAD (coronary artery disease) Denied any anginal symptoms. Continue antiplatelets, statins, beta-blockers, resume ARB once kidney function has returned to baseline or back to normal. (7) Former smoker Encouraged abstinence. (8) Acute kidney injury superimposed on CKD Proved. Back to baseline. Prerenal. Baseline creatinine 1.3. Nonoliguric. Electrolytes WNL. Renal ultrasound suggestive of medical renal disease. PTH WNL. Consulted Dr. Castillo government property inspector. Talk to him over the phone. He stated that patient can follow-up with him as outpatient. He stated it was okay for patient to be restarted on his lisinopril. (9) Acute on chronic combined systolic (congestive) and diastolic (congestive) heart failure BNP on admission 7170. 03/12/2019. 2D echo suboptimal. Mild concentric left ventricular hypertrophy, ejection fraction 65% with a stage I LVDD. Continued on volume restriction, daily weight, beta-blockers. Resumed home meds upon discharge. Physical Exam Vital Signs: Temp Pulse Resp BP Pulse Ox 97.4 F 71 19 106/46 L 97 03/15/19 12:11 03/15/19 12:11 03/15/19 12:11 03/15/19 12:11 03/15/19 12:11 Pulse Oximeter Continuous Start: 03/11/19 19:11 Freq: RTQ4 Status: Discharge Protocol: Document 03/15/19 09:00 HCR (Rec: 03/15/19 10:34 HCR [id number]) Pulse Oximetry Assessment Oxygen Saturation (92-100) 97 Oxygen Flow Rate (L/min) 4 Oxygen Delivery Method Nasal Cannula Equipment Usage Equipment in Use Continuous SpO2 Machine # 5 Intake & Output 03/16/19 03/17/19 03/18/19 06:59 06:59 06:59 Intake Total 620 Output Total 250 Balance 370 General appearance: PRESENT: no acute distress, well-developed, well-nourished Head exam: PRESENT: atraumatic, normocephalic Neck exam: ABSENT: carotid bruit, JVD, lymphadenopathy, thyromegaly Respiratory exam: PRESENT: accessory muscle use Cardiovascular exam: PRESENT: RRR. ABSENT: diastolic murmur, rubs, systolic murmur GI/Abdominal exam: PRESENT: normal bowel sounds, soft. ABSENT: distended, guarding, mass, organolmegaly, rebound, tenderness Neurological exam: PRESENT: alert, awake, oriented to person, oriented to place, oriented to time, oriented to situation, CN II-XII grossly intact. ABSENT: motor sensory deficit Results Laboratory Results: WBC 8.9 10^3/uL (4.0-10.5) 03/13/19 04:34 RBC 3.19 10^6/uL (4.35-5.55) L 03/13/19 04:34 Hgb 10.8 g/dL (13.5-17.0) L 03/13/19 04:34 Hct 30.1 % (37.9-51.0) L 03/13/19 04:34 MCV 94 fl (80-97) 03/13/19 04:34 MCH 33.9 pg (27.0-33.4) H 03/13/19 04:34 MCHC 35.9 g/dL (32.0-36.0) 03/13/19 04:34 RDW 14.1 % (11.5-14.0) H 03/13/19 04:34 Plt Count 354 10^3/uL (150-450) 03/13/19 04:34 Lymph % (Auto) 10.6 % (13-45) L 03/13/19 04:34 [place] % (Auto) 8.7 % (3-13) 03/13/19 04:34 Eos % (Auto) 2.7 % (0-6) 03/13/19 04:34 Baso % (Auto) 0.5 % (0-2) 03/13/19 04:34 Absolute Neuts (auto) 6.9 10^3/uL (1.7-8.2) 03/13/19 04:34 Absolute Lymphs (auto) 0.9 10^3/uL (0.5-4.7) 03/13/19 04:34 Absolute Monos (auto) 0.8 10^3/uL (0.1-1.4) 03/13/19 04:34 Absolute Eos (auto) 0.2 10^3/uL (0.0-0.6) 03/13/19 04:34 Absolute Basos (auto) 0.0 10^3/uL (0.0-0.2) 03/13/19 04:34 Total Counted 100 03/11/19 09:00 Seg Neutrophils % 77.5 % (42-78) 03/13/19 04:34 Seg Neuts % (Manual) 83 % (42-78) H 03/11/19 09:00 Lymphocytes % (Manual) 9 % (13-45) L 03/11/19 09:00 Atypical Lymphs % 1 % (0) 03/11/19 09:00 Monocytes % (Manual) 7 % (3-13) 03/11/19 09:00 Eosinophils % (Manual) 0 % (0-6) 03/11/19 09:00 Basophils % (Manual) 0 % (0-2) 03/11/19 09:00 Abs Neuts (Manual) 9.2 10^3/uL (1.7-8.2) H 03/11/19 09:00 Abs Lymphs (Manual) 1.1 10^3/uL (0.5-4.7) 03/11/19 09:00 Abs Monocytes (Manual) 0.8 10^3/uL (0.1-1.4) 03/11/19 09:00 Absolute Eos (Manual) 0.0 10^3/uL (0.0-0.6) 03/11/19 09:00 Abs Basophils (Manual) 0.0 10^3/uL (0.0-0.2) 03/11/19 09:00 Platelet Comment ADEQUATE 03/11/19 09:00 Anisocytosis SLIGHT 03/11/19 09:00 Ovalocytes SLIGHT 03/11/19 09:00 Schistocytes SLIGHT 03/11/19 09:00 PT 16.6 SEC (11.4-15.4) H 03/11/19 09:00 INR 1.33 03/11/19 09:00 APTT 42.0 SEC (23.5-35.8) H 03/12/19 03:17 Carbonic Acid 1.03 mmol/L (1.05-1.35) L 03/12/19 18:00 HCO3/H2CO3 Ratio 24:1 03/12/19 18:00 ABG pH 7.48 (7.35-7.45) H 03/12/19 18:00 ABG pCO2 34.2 mmHg (35-45) L 03/12/19 18:00 ABG pO2 51.0 mmHg (80-100) L 03/12/19 18:00 ABG HCO3 24.8 mmol/L (20-24) H 03/12/19 18:00 ABG Total CO2 25.8 mmol/L (23-27) 03/12/19 18:00 ABG O2 Saturation 88.9 % (94-98) L 03/12/19 18:00 ABG Base Excess 0.9 mmol/L 03/12/19 18:00 FiO2 ROOM AIR 03/12/19 18:00 Sodium 137.6 mmol/L (137-145) 03/15/19 04:08 Potassium 4.3 mmol/L (3.6-5.0) 03/15/19 04:08 Chloride 107 mmol/L (98-107) 03/15/19 04:08 Carbon Dioxide 25 mmol/L (22-30) 03/15/19 04:08 Anion Gap 6 (5-19) 03/15/19 04:08 BUN 30 mg/dL (7-20) H 03/15/19 04:08 Creatinine 1.39 mg/dL (0.52-1.25) H 03/15/19 04:08 Est GFR ( Amer) 58 (>60) L 03/15/19 04:08 Est GFR (MDRD) Non-Af 48 (>60) L 03/15/19 04:08 Glucose 86 mg/dL (75-110) 03/15/19 04:08 Calcium 8.4 mg/dL (8.4-10.2) 03/15/19 04:08 Phosphorus 2.9 mg/dL (2.5-4.5) 03/12/19 03:17 Magnesium 1.9 mg/dL (1.6-2.3) 03/12/19 03:17 CK-MB (CK-2) 3.46 ng/mL (<4.55) 03/12/19 03:17 Troponin I 1.240 ng/mL 03/13/19 04:34 NT-Pro-B Natriuret Pep 1750 pg/mL (<450) H 03/13/19 04:34 TSH 2.71 uIU/mL (0.47-4.68) 03/12/19 03:17 PTH Intact 45.0 pg/mL (10.0-65.0) 03/14/19 13:47 Urine Color YELLOW 03/12/19 18:00 Urine Appearance CLEAR 03/12/19 18:00 Urine pH 5.0 (5.0-9.0) 03/12/19 18:00 Ur Specific [place] 1.014 03/12/19 18:00 Urine Protein NEGATIVE mg/dL (NEGATIVE) 03/12/19 18:00 Urine Glucose (UA) NEGATIVE mg/dL (NEGATIVE) 03/12/19 18:00 Urine Ketones NEGATIVE mg/dL (NEGATIVE) 03/12/19 18:00 Urine Blood NEGATIVE (NEGATIVE) 03/12/19 18:00 Urine Nitrite NEGATIVE (NEGATIVE) 03/12/19 18:00 Urine Bilirubin NEGATIVE (NEGATIVE) 03/12/19 18:00 Urine Urobilinogen NEGATIVE mg/dL (<2.0) 03/12/19 18:00 Ur Leukocyte Esterase NEGATIVE (NEGATIVE) 03/12/19 18:00 Urine WBC (Auto) 3 /HPF 03/12/19 18:00 Urine RBC (Auto) 0 /HPF 03/12/19 18:00 U Hyaline Cast (Auto) 3 /LPF 03/11/19 17:08 Squamous Epi Cells Auto <1 /HPF 03/12/19 18:00 Urine Mucus (Auto) RARE /LPF 03/12/19 18:00 Urine Ascorbic Acid NEGATIVE (NEGATIVE) 03/12/19 18:00 Stool Occult Blood NEGATIVE (NEGATIVE) 03/12/19 18:00 03/11/19 03/11/19 03/11/19 09:00 13:57 20:50 CK-MB (CK-2) 6.70 H 6.96 H Troponin I 1.950 2.760 2.340 NT-Pro-B Natriuret Pep 7170 H 03/12/19 03/12/19 03/13/19 03:17 03:17 04:34 CK-MB (CK-2) 3.46 Troponin I 2.160 1.240 NT-Pro-B Natriuret Pep 4740 H 1750 H Impressions: Chest X-Ray 03/11/19 10:11 IMPRESSION: Chronic appearing bilateral interstitial lung disease. Findings have slightly progressed when compared to prior exam. Chest CT 03/12/19 00:00 IMPRESSION: UIP pattern. Mild fibrosis. Renal Ultrasound 03/14/19 09:42 IMPRESSION: Echogenic kidneys from medical renal disease. Bilateral renal cortical cysts. No hydronephrosis Plan Time Spent: Greater than 30 Minutes Stroke Is this a Stroke Patient?: No Acute Heart Failure - Is this a Heart Failure Patient?: No
== END 2019-03-15 12:58 | disposition home health service (06) | DRG 280 ==
LOC: ER 09:17 → EH 11:18 → INTOOBSV 11:18 → OBSVTOIN 11:18 → 3S 19:08 → 3N 21:52
PROVIDERS: ADMIT Hospitalist; ATTEND Hospitalist
DX: I48.0 Paroxysmal atrial fibrillation (principal); J96.21 Acute and chronic respiratory failure with hypoxia; I21.A1 Myocardial infarction type 2; I50.43 Acute on chronic combined systolic (congestive) and diastolic (congestive) heart failure; N17.9 Acute kidney failure, unspecified; I13.0 Hypertensive heart and chronic kidney disease with heart failure and stage 1 through stage 4 chronic kidney disease, or unspecified chronic kidney disease; I47.1 Supraventricular tachycardia; J84.112 Idiopathic pulmonary fibrosis; I25.10 Atherosclerotic heart disease of native coronary artery without angina pectoris; N18.9 Chronic kidney disease, unspecified; I49.3 Ventricular premature depolarization; E78.5 Hyperlipidemia, unspecified; Z87.891 Personal history of nicotine dependence; Z79.01 Long term (current) use of anticoagulants; Z79.82 Long term (current) use of aspirin; Z79.899 Other long term (current) drug therapy; Z88.8 Allergy status to other drugs, medicaments and biological substances; Z91.041 Radiographic dye allergy status
CPT/HCPCS: 36415; 71045; 71250; 76770; 80048; 81001; 82272; 82553; 82803; 83735; 83880; 83970; 84100; 84443; 84484; 85025; 85610; 85730; 93005; 93010; 93306; 94060; 94729; 94762; 96374; 99291; G0378; J3490